=== PATIENT | female | born 1990 | race Caucasian/White ===

== ENCOUNTER 2019-02-17 12:14 | Inpatient (IN) | payer OTHER ==
[~2019-02-17] VITALS: Ht 157.5 cm; Wt 96.6 kg
[2019-02-17] VITALS (11 sets, daily range): BP systolic 121–169; BP diastolic 59–105
[2019-02-17] MEDS ORDERED: ONDANSETRON HCL 4 MG/2 ML VIAL ONE ×2 (12:57→19:45)
[2019-02-17 13:05] LABS: BASOPHILS % (AUTO) 1.1 % (0.0-5.0); EOSINOPHILS % (AUTO) 0.6 % (0.0-8.0); HEMATOCRIT 36.7 % (36-48); LYMPHOCYTES % (AUTO) 13.5 % (21.0-51.0); MEAN CORPUSCULAR HEMOGLOBIN 27.8 pg (27.0-33.0); MEAN CORPUSCULAR HGB CONC 33.8 g/dL (32.0-36.0); MEAN CORPUSCULAR VOLUME 82.2 fL (79-99); NEUTROPHILS % (AUTO) 80.8 % (40.0-77.0); PLATELET COUNT (AUTO) 439 K/uL (130-400); RED BLOOD CELL COUNT(AUTO) 4.47 MIL/uL (4.00-5.50); RED CELL DISTRIBUTION WIDTH 12.6 % (11.0-15.5); WHITE BLOOD COUNT (AUTO) 10.6 K/uL (4.8-10.8)
[2019-02-17] MEDS ORDERED: SODIUM CHLORIDE 0.9% 1000ML 1,000 ML IV ONE ×2 (13:10→14:29)
[2019-02-17 13:31] LABS: ALBUMIN 1.7 g/dL (3.5-5.0); BILIRUBIN,TOTAL 0.5 mg/dL (0.2-1.0); TOTAL PROTEIN, SERUM 6.3 g/dL (6.0-8.3)
[2019-02-17 13:41] LABS: POTASSIUM 2.8 mmol/L (3.5-5.1)
[2019-02-17] MEDS ORDERED: POTASSIUM CHLORIDE 20MEQ/100ML 100 ML IV ONE (14:11)
[2019-02-17] MEDS ORDERED: INSULIN HUMULIN R 100 UNIT/ML 3ML ONE ×2 (14:13→16:02)
[2019-02-17 14:45] LABS: ABG OXYGEN SATURATION 44.8 % (95.0-99.0); BASE EXCESS,VENOUS BLOOD GAS -2.7 (-2.0-3.0); HCO3,VENOUS BLOOD GAS 21.5 (21.0-28.0); PCO2,VENOUS BLOOD GAS 36 (32-45); PH,VENOUS BLOOD GAS 7.397 (7.350-7.450)
[2019-02-17 14:47] LABS: APPEARANCE,URINE Cloudy (CLEAR); BILIRUBIN,URINE Negative (NEGATIVE); COLOR,URINE Yellow (YELLOW); GLUCOSE, URINE (UA) >=1000 mg/dL (NEGATIVE); KETONES,URINE Trace mg/dL (NEGATIVE); LEUKOCYTE ESTERASE ,URINE Negative (NEGATIVE); NITRATE,URINE Negative (NEGATIVE); OCCULT BLOOD,URINE Small (NEGATIVE); PH,URINE 7.5 (5.0-8.0); PROTEIN,URINE >=1000 mg/dL (NEGATIVE); UROBILINOGEN,URINE 0.2 mg/dL (0.2-1.0)
[2019-02-17 14:56] LABS: AMPHET/METH SCREEN,URINE NEGATIVE (NEGATIVE); BARBITURATE SCREEN, URINE NEGATIVE (NEGATIVE); BENZODIAZEPINES SCREEN,URINE NEGATIVE (NEGATIVE); CANNABINOID SCREEN,URINE NEGATIVE (NEGATIVE); COCAINE SCREEN,URINE NEGATIVE (NEGATIVE); OPIATE SCREEN,URINE NEGATIVE (NEGATIVE); PHENCYCLIDINE SCREEN,URINE NEGATIVE (NEGATIVE)
[2019-02-17] MEDS ORDERED: ACETAMINOPHEN EXTRA STRENGTH 500 MG TABLET ONE (14:56)
[2019-02-17 15:13] LABS: BACTERIA,URINE Few /HPF (None Seen); TRICHOMONAS,URINE Few /LPF (None Seen); YEAST,URINE BUDDING Few /HPF (None Seen)
[2019-02-17 15:14] LABS: HYALINE CASTS, URINE 0-1 /LPF (0-1 /LPF); SQUAMOUS EPITHELIAL CELL,UR Moderate /HPF (0-2)
[2019-02-17] MEDS ORDERED: SODIUM CHLORIDE 0.9% 100 ML IV ONE (16:00)
[2019-02-17] MEDS ORDERED: DEXTROSE 50%-WATER 50 ML DISP.SYRIN IV PRN ×2 (16:15→19:45)
[2019-02-17] MEDS ORDERED: GLUCAGON 1MG KIT 1 MG ML IM PRN ×2 (16:15→19:45)
[2019-02-17] MEDS ORDERED: INSULIN SQ SCH ×2 (16:15)
[2019-02-17] MEDS ORDERED: INSULIN R PO SS1 SQ SCH (16:30)
[2019-02-17] MEDS ORDERED: LIDOCAINE HCL-MPF 1% 2ML VIAL IV PRN (19:30)
[2019-02-17] MEDS ORDERED: KETOROLAC TROMETHAMINE 30MG/ML IV PRN (19:30)
[2019-02-17] MEDS ORDERED: KETOROLAC TROMETHAMINE 15MG/ML IV PRN (19:30)
[2019-02-17] MEDS ORDERED: ONDANSETRON HCL 4 MG/2 ML VIAL IVP PRN (19:30)
[2019-02-17] MEDS ORDERED: KETOROLAC TROMETHAMINE 15MG/ML ONE (19:46)
[2019-02-17] MEDS: SODIUM CHLORIDE 0.9% 1000ML 1,000 ML IV SCH (20:30)
[2019-02-17] MEDS: ENOXAPARIN SODIUM 30 MG/0.3 ML SQ SCH (20:31)
--- NOTE | 2019-02-17 20:40 | NUR ---
MD ROUNDS DR BLACK AT THE BEDSIDE AND ASSESSMENT COMPLETED. SPOKE TO PATIENT REGARDING DEPRESSIVE BEHAVIORS. PSYCHIATRY CONSULT ORDERED FOR TUESDAY
[2019-02-17] MEDS: POTASSIUM CHLORIDE 20MEQ/100ML 100 ML IV PRN ×2 (20:50→23:19)
--- NOTE | 2019-02-17 21:04 | NUR ---
NAUSEA PATIENT REPORTS NO NAUSEA BUT IS FORCING SELF TO THOW UP USING FINGERS. HAS BEEN MEDICATED WITH ANTIEMETIC
[2019-02-18] VITALS (12 sets, daily range): BP systolic 126–185; BP diastolic 72–109
[2019-02-18] MEDS: INSULIN HUMULIN R 100 UNIT/ML 3ML SQ SCH ×5 (00:20→21:16)
[2019-02-18 03:53] LABS: CREATININE 1.8 mg/dL (0.5-1.5); POTASSIUM 3.2 mmol/L (3.5-5.1)
[2019-02-18] MEDS: POTASSIUM CHLORIDE 20MEQ/100ML 100 ML IV PRN ×2 (04:29→06:30)
[2019-02-18] MEDS: SODIUM CHLORIDE 0.9% 1000ML 1,000 ML IV SCH ×5 (04:31→21:21)
[2019-02-18] MEDS ORDERED: INSU100V3 SQ (06:46)
[2019-02-18] MEDS: ENOXAPARIN SODIUM 30 MG/0.3 ML SQ SCH (08:01)
[2019-02-18] MEDS: FAMOTIDINE/PF 20 MG/2 ML VIAL IV SCH (08:01)
--- NOTE | 2019-02-18 10:00 | NUR ---
Dr. Dickey office was called due to new consult but there was not answer. Message left.
--- NOTE | 2019-02-18 10:51 | NUR ---
Patient continues to complain about nausea and vomiting. Witness patient placing fingers in her mouth to force vomit. Antiemetic was giving in the morning around 0800 with no relief of her symptoms. PCP made aware of patients behavior.
--- NOTE | 2019-02-18 10:55 | NUR ---
Right forearm IV infiltrated. IV was removed immediately, arm elevated, and warm pack was placed on the site.
--- NOTE | 2019-02-18 11:05 | NUR ---
Spoke with Dr. Reagan about patient refusing to be placed on the bedside monitor for continuous monitoring. He ordered that it was okay to monitor the patients vitals signs q4hrs.
--- NOTE | 2019-02-18 14:10 | NUR ---
Dr. Reagan notified about the patient refusing continuous IV NS to be given and does not want potassium IV. PO recommended but patient continues to induce herself to vomit.
--- NOTE | 2019-02-18 15:35 | NUR ---
cm note met with patient and states resides at home with sister. recently moved down from [place]. states she plans to stay here in the area. states she uses insulin at home. has been diabetic all her life. pt states she does not have a local md, provided pt with list of low income clinics in the area, and instructed on importance of md followup and medication compliance. pt states she will followup at clinics. has spoke to christa for possible assistance. dc plan is back home with sister at tx. Addendum: 02/18/19 at 1539 by DARIUSZ ALONZO CM Amended: Links added.
--- NOTE | 2019-02-18 16:00 | NUR ---
Patient transferred to 4th floor room 410 at 1600. All belongings went with the patient.
[2019-02-19] VITALS (7 sets, daily range): BP systolic 128–153; BP diastolic 75–98
[2019-02-19] MEDS: SODIUM CHLORIDE 0.9% 1000ML 1,000 ML IV SCH ×3 (05:11→18:06)
[2019-02-19] MEDS: INSULIN HUMULIN R 100 UNIT/ML 3ML SQ SCH ×4 (05:11→20:46)
[2019-02-19] MEDS: FAMOTIDINE/PF 20 MG/2 ML VIAL IV SCH ×2 (09:23→20:41)
[2019-02-19] MEDS: ENOXAPARIN SODIUM 30 MG/0.3 ML SQ SCH (09:24)
[2019-02-19] MEDS: INSULIN NPH 100 UNIT/ML 3ML SQ SCH ×2 (16:00→20:45)
[2019-02-19] MEDS ORDERED: METOCLOPRAMIDE 10 MG/2 ML VIAL IVP SCH (16:30)
[2019-02-19] MEDS ORDERED: INSULIN GLARGINE 100 UNITS/ML 10 ML VIAL SQ ONE (17:30)
--- NOTE | 2019-02-19 19:00 | NUR ---
NOTE DR LYNN ROUNDED AND HE DID NOT WANT TO SEE THE CONSULT BECAUSE HE DID NOT THINK THERE WAS A REASON FOR GI TO BE CONSULTED FOR N/V. HE RECOMMENDED PATIENT HAD GASTRIC EMPTYING STUDY DONE AND IF THERE IS ANY ISSUES LATER HE CAN BE CONSULTED BUT NOT FOR SUSPECTED GASTROPARESIS. PATIENT HAS BEEN OKAY SINCE SHE WAS GIVEN REGLAN IV AND SHE IS BACK ON IVF. HAVE ENTERED STUDY ORDER FOR TOMORROW. PATIENT WILL BE NPO AND HOLD REGLAN PER LEAH'S ORDERS.
[2019-02-20 03:40] VITALS: BP 152/96
[2019-02-20 05:16] LABS: BASOPHILS % (AUTO) 0.4 % (0.0-5.0); EOSINOPHILS % (AUTO) 2.7 % (0.0-8.0); HEMATOCRIT 30.6 % (36-48); LYMPHOCYTES % (AUTO) 30.8 % (21.0-51.0); MEAN CORPUSCULAR HEMOGLOBIN 28.5 pg (27.0-33.0); MEAN CORPUSCULAR HGB CONC 34.6 g/dL (32.0-36.0); MEAN CORPUSCULAR VOLUME 82.4 fL (79-99); MONOCYTES % (AUTO) 8.6 % (3.0-13.0); NEUTROPHILS % (AUTO) 57.5 % (40.0-77.0); PLATELET COUNT (AUTO) 342 K/uL (130-400); RED BLOOD CELL COUNT(AUTO) 3.72 MIL/uL (4.00-5.50); RED CELL DISTRIBUTION WIDTH 12.6 % (11.0-15.5); WHITE BLOOD COUNT (AUTO) 8.1 K/uL (4.8-10.8)
[2019-02-20 05:20] LABS: HEMOGLOBIN A1C 14.4 % (4.0-6.0)
[2019-02-20 05:31] LABS: CREATININE 1.5 mg/dL (0.5-1.5); POTASSIUM 3.1 mmol/L (3.5-5.1)
[2019-02-20] MEDS: INSULIN HUMULIN R 100 UNIT/ML 3ML SQ SCH ×4 (06:09→21:02)
[2019-02-20 07:59] VITALS: BP 149/86
[2019-02-20] MEDS: INSULIN NPH 100 UNIT/ML 3ML SQ SCH ×2 (08:00→18:33)
[2019-02-20] MEDS: FAMOTIDINE/PF 20 MG/2 ML VIAL IV SCH (10:27)
[2019-02-20] MEDS: ENOXAPARIN SODIUM 30 MG/0.3 ML SQ SCH (10:27)
[2019-02-20 10:45] VITALS: BP 161/113
[2019-02-20] MEDS: SODIUM CHLORIDE 0.9% 1000ML 1,000 ML IV SCH ×2 (11:41→21:41)
[2019-02-20 17:36] VITALS: BP 154/92
[2019-02-20 20:00] VITALS: BP 159/95
[2019-02-20 23:36] VITALS: BP 156/99
[2019-02-21] VITALS (7 sets, daily range): BP systolic 126–147; BP diastolic 75–93
[2019-02-21] MEDS ORDERED: HYDRALAZINE HCL 20 MG/ML VIAL IV PRN
[2019-02-21] MEDS ORDERED: HYDRALAZINE HCL 20 MG/ML VIAL ONE (00:07)
[2019-02-21 04:28] LABS: BASOPHILS % (AUTO) 0.8 % (0.0-5.0); EOSINOPHILS % (AUTO) 1.5 % (0.0-8.0); MEAN CORPUSCULAR HGB CONC 35.4 g/dL (32.0-36.0); MEAN CORPUSCULAR VOLUME 82.1 fL (79-99); MONOCYTES % (AUTO) 8.4 % (3.0-13.0); NEUTROPHILS % (AUTO) 63.3 % (40.0-77.0); PLATELET COUNT (AUTO) 376 K/uL (130-400); RED BLOOD CELL COUNT(AUTO) 3.89 MIL/uL (4.00-5.50); RED CELL DISTRIBUTION WIDTH 12.8 % (11.0-15.5); WHITE BLOOD COUNT (AUTO) 9.6 K/uL (4.8-10.8)
[2019-02-21 04:41] LABS: CREATININE 1.6 mg/dL (0.5-1.5); MAGNESIUM 1.6 mg/dL (1.80-2.40)
[2019-02-21] MEDS: INSULIN HUMULIN R 100 UNIT/ML 3ML SQ SCH ×4 (05:25→21:01)
[2019-02-21] MEDS ORDERED: POTASSIUM CHLORIDE 20 MEQ ERTAB PO PRN (05:30)
[2019-02-21] MEDS ORDERED: POTASSIUM CHLORIDE 20 MEQ ERTAB PO ONE (05:33)
[2019-02-21] MEDS: SODIUM CHLORIDE 0.9% 1000ML 1,000 ML IV SCH (07:41)
[2019-02-21] MEDS: FAMOTIDINE/PF 20 MG/2 ML VIAL IV SCH (08:41)
[2019-02-21] MEDS: POTASSIUM CHLORIDE 20MEQ/100ML 100 ML IV PRN (08:42)
[2019-02-21] MEDS: ENOXAPARIN SODIUM 30 MG/0.3 ML SQ SCH (08:43)
[2019-02-21] MEDS: INSULIN NPH 100 UNIT/ML 3ML SQ SCH ×2 (08:51→16:31)
--- NOTE | 2019-02-21 09:00 | NUR ---
DR CHEN PAGED REGARDING CONSULT PENDING CB
--- NOTE | 2019-02-21 10:23 | NUR ---
RCD CALL FROM S OFFICE SPOKE TO MISTI ABOUT CONSULT, STATED HE WILL BE IN TO SEE PT TODAY
--- NOTE | 2019-02-21 14:16 | NUR ---
RD Notification Pt admitted for Uncontrolled Hyperglycemia, Mild DKA. Pt tolerating 75gm CCD, no report of GI distress and improved good appetite (75-100%) as per Pt. Pending Diabetic Diet education upon follow up. Pt LBM 02/20. Pt monitored labs: K 3.0, Cr 1.6, GFR 4.0, Ca 7.9, Mg 1.60, Alb 1.7. RD to continue to monitor. Please notify RD as additional nutrition concerns arise. thank you. Addendum: 02/21/19 at [address] RD Amended: Links added.
[2019-02-21] MEDS ORDERED: MAGNESIUM SULFATE 1 GM in SODIUM CHLORIDE 0.9% 50 ML IV PRN (15:30)
[2019-02-21] MEDS: POTASSIUM CHLORIDE 10% ELIXIR 20 MEQ/15 ML UDCUP PO PRN ×2 (16:24→18:20)
[2019-02-21] MEDS: METOCLOPRAMIDE 5 MG TABLET PO SCH (16:24)
[2019-02-21] MEDS ORDERED: TRAZODONE HCL 100 MG TABLET PO SCH (21:00)
[2019-02-22 04:00] VITALS: BP 116/80
[2019-02-22 04:26] LABS: HEMATOCRIT 29.8 % (36-48); MEAN CORPUSCULAR HEMOGLOBIN 28.4 pg (27.0-33.0); MEAN CORPUSCULAR HGB CONC 33.9 g/dL (32.0-36.0); PLATELET COUNT (AUTO) 339 K/uL (130-400); RED BLOOD CELL COUNT(AUTO) 3.54 MIL/uL (4.00-5.50); RED CELL DISTRIBUTION WIDTH 13.1 % (11.0-15.5); WHITE BLOOD COUNT (AUTO) 6.9 K/uL (4.8-10.8)
[2019-02-22 04:27] LABS: BASOPHILS % (AUTO) 0.5 % (0.0-5.0); EOSINOPHILS % (AUTO) 3.3 % (0.0-8.0); LYMPHOCYTES % (AUTO) 41.8 % (21.0-51.0); MONOCYTES % (AUTO) 8.7 % (3.0-13.0); NEUTROPHILS % (AUTO) 45.7 % (40.0-77.0)
[2019-02-22 04:38] LABS: CREATININE 1.5 mg/dL (0.5-1.5); MAGNESIUM 1.8 mg/dL (1.80-2.40); POTASSIUM 4.4 mmol/L (3.5-5.1)
[2019-02-22] MEDS: METOCLOPRAMIDE 5 MG TABLET PO SCH ×2 (06:44→17:00)
[2019-02-22] MEDS: INSULIN HUMULIN R 100 UNIT/ML 3ML SQ SCH ×3 (06:45→16:59)
[2019-02-22] MEDS: INSULIN NPH 100 UNIT/ML 3ML SQ SCH ×2 (06:45→16:58)
[2019-02-22 07:54] VITALS: BP 151/98
[2019-02-22] MEDS ORDERED: FLUOXETINE HCL 20 MG CAPSULE PO SCH (09:00)
[2019-02-22] MEDS: ENOXAPARIN SODIUM 30 MG/0.3 ML SQ SCH (09:03)
[2019-02-22] MEDS: FAMOTIDINE/PF 20 MG/2 ML VIAL IV SCH (09:03)
[2019-02-22 11:26] VITALS: BP 156/96
[2019-02-22] MEDS ORDERED: FLUO-126 PO (13:32)
[2019-02-22] MEDS ORDERED: HUMLIS7525 SQ (13:32)
[2019-02-22] MEDS ORDERED: TRAZ-221 PO (13:32)
--- NOTE | 2019-02-22 14:31 | NUR ---
RD FOLLOW UP DIET: REGULAR- 75GMCCD. PO INTAKE 0% (LUNCH) AND HAS STEADY APPETITE. PT NOT HUNGRY AT LUNCH; DURING TIME OF VISIT. PT STATED SHE ATE A GOOD BREAKFAST AND WAS NOT VERY HUNGRY AT THE MOMENT. PT UNABLE TO IDENTIFY FOODS TO AVOID/RECOMMENDED REGARDING A DIABETIC DIET. RD PROVIDED DIABETES DIET AND NUTRITION EDUCATION. PT VERBALIZED UNDERSTANDING, MATERIALS PROVIDED. RD RECOMMENDS CONTINUE CURRENT DIET RD PROVIDED DIABETES DIET AND NUTRITION EDUCATION RD WILL FOLLOW UP NEEDED, THANK YOU. Addendum: 02/22/19 at [address] Amended: Links added.
--- NOTE | 2019-02-22 14:36 | NUR ---
NUTRITION EDUCATION PT UNABLE TO IDENTIFY FOODS TO AVOID/RECOMMENDED REGARDING A DIABETIC DIET. RD PROVIDED DIABETES DIET AND NUTRITION EDUCATION. PT VERBALIZED UNDERSTANDING, MATERIALS PROVIDED. Addendum: 02/22/19 at [address] Amended: Links added.
[2019-02-22 16:00] VITALS: BP 157/94
--- NOTE | 2019-02-22 18:11 | NUR ---
PT D/C HOME USING TEACH BACK TECHNIQUE RE; NEW MEDS, HOME MEDS, S/S TO WATCH FOR AND WHEN TO CALL MD OR 911. FOLLOW UP WITH YOUR PRIMARY DOCTOR IN 2-4 DAYS. FOR BLOOD GLUCOSE MANAGEMENT AND CONTROL. CALL 911 IF SHORTNESS OF BREATH AND CHEST PAIN OCCURS AND DOES NOT RESOLVE WITH REST. CHECK BLOOD SUGARS DAILY BEFORE MEALS AND AT BEDTIME. IV OUT, INTACT NO BLEEDING, AAOX3, DENIES ANY DISTRESS, NO SOB, DENIES ANY QUESTIONS. RX AND EDUCATION GIVEN RE; HYPO AND HYPERGLYCEMIA. FRIEND AT BEDSIDE WHO SEEMS CONCERN OF PT CARE ALSO ATTENTIVE OF EDUCATION.
== END 2019-02-22 18:25 | disposition home or self-care (01) | DRG 638 ==
LOC: EDH 12:14 → OBSVTOIN 12:15 → EDHIP 12:15 → 2CH 18:57 → 4BH 02-18 16:20
PROVIDERS: ADMIT Family Medicine; ATTEND Family Medicine
DX: E11.10 Type 2 diabetes mellitus with ketoacidosis without coma (principal); N17.9 Acute kidney failure, unspecified; E87.0 Hyperosmolality and hypernatremia; K31.84 Gastroparesis; E11.43 Type 2 diabetes mellitus with diabetic autonomic (poly)neuropathy; R63.0 Anorexia; F32.9 Major depressive disorder, single episode, unspecified; R13.10 Dysphagia, unspecified; Z68.39 Body mass index [BMI] 39.0-39.9, adult; E66.01 Morbid (severe) obesity due to excess calories; I10 Essential (primary) hypertension; Z87.81 Personal history of (healed) traumatic fracture; Z91.19 Patient's noncompliance with other medical treatment and regimen
CPT/HCPCS: 36415; 36600; 74220; 78264; 80048; 80053; 80305; 81001; 81025; 82010; 82150; 82803; 82948; 83036; 83690; 83735; 84132; 85025; 87804; A9541; G0378; J0360; J1650; J1815; J1885; J2405; J2765; J3480; J3490; J7030

== ENCOUNTER 2020-10-30 10:27 | Inpatient (IN) | payer OTHER ==
[2020-10-30] VITALS (19 sets, daily range): BP systolic 129–152; BP diastolic 58–109
[~2020-10-30] VITALS: Ht 160 cm; Wt 70.4 kg
[~2020-10-30 10:27] MED LIST: FLUO20CA35 PO; HUMLIS7525 SQ; TRAZ-258 PO
[2020-10-30 11:11] LABS: BASOPHILS % (AUTO) 0.4 % (0.0-5.0); EOSINOPHILS % (AUTO) 5.5 % (0.0-8.0); LYMPHOCYTES % (AUTO) 15.8 % (21.0-51.0); MEAN CORPUSCULAR HEMOGLOBIN 28.3 pg (27.0-33.0); MEAN CORPUSCULAR HGB CONC 30.8 g/dL (32.0-36.0); MEAN CORPUSCULAR VOLUME 91.8 fL (79-99); MONOCYTES % (AUTO) 9.8 % (3.0-13.0); NEUTROPHILS % (AUTO) 68.2 % (40.0-77.0); PLATELET COUNT (AUTO) 205 K/uL (130-400); RED BLOOD CELL COUNT(AUTO) 4.14 MIL/uL (4.00-5.50); RED CELL DISTRIBUTION WIDTH 16.5 % (11.0-15.5)
[2020-10-30 11:19] LABS: INR 1.15 (0.85-1.15); PROTHROMBIN TIME 12.4 SEC (9.6-11.6)
[2020-10-30 11:20] LABS: PARTIAL THROMBOPLASTIN TIME 25.8 SEC (26.3-35.5)
[2020-10-30 11:23] LABS: ALBUMIN 3.1 g/dL (3.5-5.0); BILIRUBIN,TOTAL 0.6 mg/dL (0.2-1.0); CREATININE 7.1 mg/dL (0.5-1.5); TOTAL PROTEIN, SERUM 7.8 g/dL (6.0-8.3)
[2020-10-30] MEDS ORDERED: ACETAMINOPHEN 325 MG TAB PO PRN ×2 (14:30)
[2020-10-30] MEDS ORDERED: VANCOMYCIN PROTOCOL PER PHARMACY IV PRN (14:30)
[2020-10-30] MEDS ORDERED: ONDANSETRON 4MG INJ IV PRN (14:30)
[2020-10-30] MEDS ORDERED: RENAL DOSE IV SCH (14:30)
[2020-10-30] MEDS ORDERED: HYDRALAZINE 20MG/ML VIAL IV PRN (14:30)
[2020-10-30] MEDS: VANCOMYCIN KIT 250 ML IV SCH (14:41)
[2020-10-30 15:03] LABS: CRP QUANTITATIVE 13.7 mg/L (0.00-9.0)
[2020-10-30] MEDS ORDERED: 0.9%NACL 1000ML 1,000 ML IV PRN (17:30)
[2020-10-30] MEDS ORDERED: HEPARIN 5,000 UNIT VIAL SQ PRN (17:30)
[2020-10-30] MEDS: HYDROMORPHONE 0.5 MG SYG (0.5MG/0.5ML) IVP PRN (20:47)
[2020-10-30] MEDS: ZOSYN 3.375GM+NS 50ML 50 ML IV SCH (21:56)
[2020-10-31] MEDS: HYDROMORPHONE 0.5 MG SYG (0.5MG/0.5ML) IVP PRN ×4 (02:51→21:16)
[2020-10-31 03:32] VITALS: BP 117/86
[2020-10-31 04:42] LABS: BASOPHILS % (AUTO) 0.6 % (0.0-5.0); EOSINOPHILS % (AUTO) 5.6 % (0.0-8.0); HEMATOCRIT 39.1 % (36-48); MEAN CORPUSCULAR HEMOGLOBIN 28.4 pg (27.0-33.0); MEAN CORPUSCULAR HGB CONC 30.9 g/dL (32.0-36.0); MEAN CORPUSCULAR VOLUME 91.8 fL (79-99); MONOCYTES % (AUTO) 10.1 % (3.0-13.0); NEUTROPHILS % (AUTO) 62.6 % (40.0-77.0); PLATELET COUNT (AUTO) 197 K/uL (130-400); RED BLOOD CELL COUNT(AUTO) 4.26 MIL/uL (4.00-5.50); RED CELL DISTRIBUTION WIDTH 16.6 % (11.0-15.5); WHITE BLOOD COUNT (AUTO) 6.9 K/uL (4.8-10.8)
[2020-10-31 04:57] LABS: CREATININE 5.6 mg/dL (0.5-1.5); CRP QUANTITATIVE 15.4 mg/L (0.00-9.0); PHOSPHORUS 5.2 mg/dL (2.5-4.9); POTASSIUM 3.9 mmol/L (3.5-5.1)
[2020-10-31 05:01] LABS: HEMOGLOBIN A1C 11.1 % (4.0-6.0)
[2020-10-31 08:16] VITALS: BP 127/90
[2020-10-31] MEDS: ZOSYN 3.375GM+NS 50ML 50 ML IV SCH ×2 (09:04→20:36)
[2020-10-31] MEDS: ENOXAPARIN SODIUM 30 MG/0.3 ML SQ SCH (09:05)
[2020-10-31 11:09] VITALS: BP 129/89
[2020-10-31 17:07] VITALS: BP 130/90
[2020-10-31 20:00] VITALS: BP 130/95
[2020-10-31 23:51] VITALS: BP 128/85
[2020-11-01] VITALS (37 sets, daily range): BP systolic 94–176; BP diastolic 36–96
[2020-11-01] MEDS: HYDROMORPHONE 0.5 MG SYG (0.5MG/0.5ML) IVP PRN ×3 (03:17→18:25)
[2020-11-01 05:00] LABS: BASOPHILS % (AUTO) 0.5 % (0.0-5.0); EOSINOPHILS % (AUTO) 5.6 % (0.0-8.0); HEMATOCRIT 38.4 % (36-48); LYMPHOCYTES % (AUTO) 26.6 % (21.0-51.0); MEAN CORPUSCULAR HEMOGLOBIN 28.2 pg (27.0-33.0); MEAN CORPUSCULAR HGB CONC 31.3 g/dL (32.0-36.0); MEAN CORPUSCULAR VOLUME 90.1 fL (79-99); MONOCYTES % (AUTO) 11.1 % (3.0-13.0); NEUTROPHILS % (AUTO) 55.9 % (40.0-77.0); PLATELET COUNT (AUTO) 204 K/uL (130-400); RED BLOOD CELL COUNT(AUTO) 4.26 MIL/uL (4.00-5.50); RED CELL DISTRIBUTION WIDTH 16.4 % (11.0-15.5); WHITE BLOOD COUNT (AUTO) 5.9 K/uL (4.8-10.8)
[2020-11-01] MEDS: ENOXAPARIN SODIUM 30 MG/0.3 ML SQ SCH (09:00)
[2020-11-01] MEDS: ZOSYN 3.375GM+NS 50ML 50 ML IV SCH ×2 (09:52→21:40)
[2020-11-01 13:40] LABS: CREATININE 4.8 mg/dL (0.5-1.5)
[2020-11-01] MEDS ORDERED: LIDOCAINE PF 100MG/5ML (2%) SYRINGE 5ML ONE (14:00)
[2020-11-01] MEDS ORDERED: SUCCINYLCHOLINE CHLORIDE 20 MG/ML 10 ML VIAL ONE (14:00)
[2020-11-01] MEDS ORDERED: 0.9% NACL 250ML 250 ML ONE (14:00)
[2020-11-01] MEDS ORDERED: NEOSTIGMINE 5MG/5ML SYR IV ONE ×2 (14:01→15:36)
[2020-11-01] MEDS ORDERED: ONDANSETRON 4MG INJ ONE (14:01)
[2020-11-01] MEDS ORDERED: GLYCOPYRROLATE 1 MG/5 ML SYRINGE ONE (14:01)
[2020-11-01] MEDS ORDERED: DEXAMETHASONE SOD PHOSPHATE 10MG/ML 1ML VIAL ONE (14:01)
[2020-11-01] MEDS ORDERED: MIDAZOLAM HCL 1 MG/ML 2ML VIAL ONE (14:01)
[2020-11-01] MEDS ORDERED: PROPOFOL 10 MG/ML 20ML VIAL IV ONE (14:01)
[2020-11-01] MEDS ORDERED: ROCURONIUM 10MG/1ML SYR 10 MG/ML ML ONE (14:01)
[2020-11-01] MEDS ORDERED: FENTANYL CITRATE PF 50 MCG/1 ML 2ML VIAL ONE (14:02)
[2020-11-01] MEDS ORDERED: EPHEDRINE SULFATE 50 MG/ML AMPULE ONE (15:26)
[2020-11-01] MEDS ORDERED: SUGAMMADEX SODIUM 200 MG/2 ML VIAL IV ONE (15:40)
[2020-11-01] MEDS ORDERED: CEFAZOLIN SODIUM 1 GM VIAL ONE (15:43)
[2020-11-01] MEDS: VANCOMYCIN KIT 250 ML IV SCH (16:38)
[2020-11-01] MEDS ORDERED: MEPERIDINE-PF 25 MG/ML SYG ONE (17:05)
[2020-11-02] VITALS (7 sets, daily range): BP systolic 105–142; BP diastolic 63–88
[2020-11-02] MEDS: HYDROMORPHONE 0.5 MG SYG (0.5MG/0.5ML) IVP PRN ×5 (00:25→23:43)
[2020-11-02 04:40] LABS: BASOPHILS % (AUTO) 0.1 % (0.0-5.0); HEMATOCRIT 37.5 % (36-48); LYMPHOCYTES % (AUTO) 10.1 % (21.0-51.0); MEAN CORPUSCULAR HEMOGLOBIN 27.9 pg (27.0-33.0); MEAN CORPUSCULAR HGB CONC 31.5 g/dL (32.0-36.0); MEAN CORPUSCULAR VOLUME 88.7 fL (79-99); MONOCYTES % (AUTO) 3.7 % (3.0-13.0); NEUTROPHILS % (AUTO) 85.8 % (40.0-77.0); PLATELET COUNT (AUTO) 232 K/uL (130-400); RED BLOOD CELL COUNT(AUTO) 4.23 MIL/uL (4.00-5.50); RED CELL DISTRIBUTION WIDTH 16.5 % (11.0-15.5); WHITE BLOOD COUNT (AUTO) 7.2 K/uL (4.8-10.8)
[2020-11-02 05:00] LABS: CREATININE 6.6 mg/dL (0.5-1.5); CRP QUANTITATIVE 21.5 mg/L (0.00-9.0); PHOSPHORUS 7.2 mg/dL (2.5-4.9); POTASSIUM 4.8 mmol/L (3.5-5.1)
[2020-11-02] MEDS: ZOSYN 3.375GM+NS 50ML 50 ML IV SCH ×2 (09:58→20:40)
[2020-11-02] MEDS: ENOXAPARIN SODIUM 30 MG/0.3 ML SQ SCH (09:58)
[2020-11-02] MEDS ORDERED: TRAMADOL HCL 50 MG TABLET PO PRN (11:00)
[2020-11-02] MEDS ORDERED: ACETAMINOPHEN 325 MG TAB PO PRN (11:00)
[2020-11-03 03:41] VITALS: BP_SYST 165; BP_SYST 99; BP_DIAS 66; BP_DIAS 93
[2020-11-03 04:27] LABS: HEMATOCRIT 34.2 % (36-48); MEAN CORPUSCULAR HEMOGLOBIN 28.2 pg (27.0-33.0); MEAN CORPUSCULAR HGB CONC 31.9 g/dL (32.0-36.0); MEAN CORPUSCULAR VOLUME 88.6 fL (79-99); PLATELET COUNT (AUTO) 229 K/uL (130-400); RED BLOOD CELL COUNT(AUTO) 3.86 MIL/uL (4.00-5.50); RED CELL DISTRIBUTION WIDTH 16.9 % (11.0-15.5); WHITE BLOOD COUNT (AUTO) 7.5 K/uL (4.8-10.8)
[2020-11-03] MEDS: HYDROMORPHONE 0.5 MG SYG (0.5MG/0.5ML) IVP PRN ×5 (04:34→23:29)
[2020-11-03 04:36] LABS: HEMOGLOBIN A1C 11.2 % (4.0-6.0)
[2020-11-03 04:39] LABS: ALBUMIN 2.8 g/dL (3.5-5.0); BILIRUBIN,DIRECT 0.3 mg/dL (0.0-0.3); BILIRUBIN,TOTAL 0.5 mg/dL (0.2-1.0); PHOSPHORUS 8.9 mg/dL (2.5-4.9); POTASSIUM 5.2 mmol/L (3.5-5.1); TOTAL PROTEIN, SERUM 7.5 g/dL (6.0-8.3)
[2020-11-03 04:49] LABS: CREATININE 8.4 mg/dL (0.5-1.5)
[2020-11-03 05:22] LABS: EOSINOPHILS % (MANUAL) 3 % (1-6); LYMPHOCYTES % (MANUAL) 27 % (22-44); MONOCYTES % (MANUAL) 9 % (2-9); SEGMENTED NEUTROPHILS % 61 % (40-70)
[2020-11-03 05:23] LABS: MAN.DIFF COMMENT-IMPRESSION MANUAL DIFFERENTIAL; PLATELET MORPHOLOGY COMMENT ADEQUATE
[2020-11-03 07:05] VITALS: BP 113/71
[2020-11-03] MEDS ORDERED: SEVELAMER HCL 800 MG TABLET PO SCH (08:00)
[2020-11-03] MEDS: ZOSYN 3.375GM+NS 50ML 50 ML IV SCH ×2 (09:11→23:01)
[2020-11-03] MEDS: ENOXAPARIN SODIUM 30 MG/0.3 ML SQ SCH (09:12)
[2020-11-03 10:30] VITALS: BP 114/75
[2020-11-03] MEDS: INSULIN HUMULIN R 100 UNIT/ML 3ML SQ SCH ×5 (11:30→21:00)
[2020-11-03] MEDS: SEVELAMER HCL 800 MG TABLET PO SCH ×2 (12:33→17:58)
[2020-11-03 15:05] VITALS: BP 115/77
[2020-11-03 20:00] VITALS: BP 137/84
[2020-11-03] MEDS ORDERED: 0.9% NACL 250ML 250 ML ONE (22:11)
[2020-11-03] MEDS: VANCOMYCIN KIT 250 ML IV SCH (22:25)
[2020-11-03] MEDS: INSULIN GLARGINE 100 UNITS/ML 10 ML VIAL SQ SCH (22:37)
[2020-11-04] VITALS (23 sets, daily range): BP systolic 133–162; BP diastolic 85–99
[2020-11-04] MEDS: HYDROMORPHONE 0.5 MG SYG (0.5MG/0.5ML) IVP PRN ×3 (03:03→15:05)
[2020-11-04] MEDS: SEVELAMER HCL 800 MG TABLET PO SCH ×3 (07:26→16:56)
[2020-11-04] MEDS: INSULIN HUMULIN R 100 UNIT/ML 3ML SQ SCH ×7 (07:30→20:08)
[2020-11-04 08:10] LABS: HEMATOCRIT 37.9 % (36-48); MEAN CORPUSCULAR HEMOGLOBIN 28.4 pg (27.0-33.0); MEAN CORPUSCULAR HGB CONC 31.1 g/dL (32.0-36.0); MEAN CORPUSCULAR VOLUME 91.3 fL (79-99); PLATELET COUNT (AUTO) 238 K/uL (130-400); RED BLOOD CELL COUNT(AUTO) 4.15 MIL/uL (4.00-5.50); RED CELL DISTRIBUTION WIDTH 17.2 % (11.0-15.5); WHITE BLOOD COUNT (AUTO) 8.7 K/uL (4.8-10.8)
[2020-11-04 08:28] LABS: CREATININE 10.6 mg/dL (0.5-1.5)
[2020-11-04 08:29] LABS: POTASSIUM 6.3 mmol/L (3.5-5.1)
[2020-11-04] MEDS: ZOSYN 3.375GM+NS 50ML 50 ML IV SCH ×2 (09:00→20:01)
[2020-11-04] MEDS: ENOXAPARIN SODIUM 30 MG/0.3 ML SQ SCH (09:00)
[2020-11-04 09:02] LABS: BASOPHILS % (MANUAL) 1 % (0-2); EOSINOPHILS % (MANUAL) 3 % (1-6); LYMPHOCYTES % (MANUAL) 37 % (22-44); MAN.DIFF COMMENT-IMPRESSION MANUAL DIFFERENTIAL; MONOCYTES % (MANUAL) 9 % (2-9); PLATELET MORPHOLOGY COMMENT ADEQUATE; SEGMENTED NEUTROPHILS % 50 % (40-70)
[2020-11-04] MEDS: VANCOMYCIN KIT 250 ML IV SCH (11:48)
[2020-11-04] MEDS ORDERED: KAYEXALATE 15GM/60ML PO ONE (16:00)
[2020-11-04 16:53] LABS: CREATININE 6.4 mg/dL (0.5-1.5); POTASSIUM 4.4 mmol/L (3.5-5.1)
[2020-11-04] MEDS ORDERED: TRAMADOL HCL 50 MG TABLET PO PRN (19:30)
[2020-11-04] MEDS: ACETAMINOPHEN WITH CODEINE 1 TAB TAB PO PRN (20:01)
[2020-11-04] MEDS: INSULIN GLARGINE 100 UNITS/ML 10 ML VIAL SQ SCH (21:00)
[2020-11-05] VITALS: BP 131/85
[2020-11-05 04:00] VITALS: BP 127/86
[2020-11-05 04:58] LABS: HEMATOCRIT 35.2 % (36-48); MEAN CORPUSCULAR HEMOGLOBIN 27.9 pg (27.0-33.0); MEAN CORPUSCULAR HGB CONC 31.3 g/dL (32.0-36.0); MEAN CORPUSCULAR VOLUME 89.3 fL (79-99); RED BLOOD CELL COUNT(AUTO) 3.94 MIL/uL (4.00-5.50); RED CELL DISTRIBUTION WIDTH 16.7 % (11.0-15.5); WHITE BLOOD COUNT (AUTO) 6.9 K/uL (4.8-10.8)
[2020-11-05 05:10] LABS: CREATININE 7.7 mg/dL (0.5-1.5); CRP QUANTITATIVE 9.8 mg/L (0.00-9.0); POTASSIUM 4.3 mmol/L (3.5-5.1)
[2020-11-05] MEDS: INSULIN HUMULIN R 100 UNIT/ML 3ML SQ SCH ×4 (05:25→11:30)
[2020-11-05] MEDS: ACETAMINOPHEN WITH CODEINE 1 TAB TAB PO PRN (06:11)
[2020-11-05] MEDS: SEVELAMER HCL 800 MG TABLET PO SCH ×2 (08:50→11:53)
[2020-11-05] MEDS: ZOSYN 3.375GM+NS 50ML 50 ML IV SCH (08:50)
[2020-11-05] MEDS: ENOXAPARIN SODIUM 30 MG/0.3 ML SQ SCH (08:50)
[2020-11-05 09:24] VITALS: BP 133/96
[2020-11-05] MEDS ORDERED: HYDROCODONE/ACETAMINOPHEN 5/325 MG TAB PO PRN (10:30)
[2020-11-05] MEDS ORDERED: ACETAMINOPHEN WITH CODEINE 1 TAB TAB PO PRN (10:30)
[2020-11-05 11:00] VITALS: BP 134/93
[2020-11-05 13:13] LABS: HEPATITIS Bs ANTIGEN SCREEN P Negative (Negative)
[2020-11-05] MEDS ORDERED: LEVO250T59 PO (16:13)
[2020-11-05] MEDS ORDERED: SEVE800 PO (16:13)
[2020-11-05] MEDS ORDERED: HYDR-4060 PO (16:13)
== END 2020-11-05 17:00 | disposition home or self-care (01) | DRG 570 ==
LOC: EDH 10:27 → EDHIP 14:03 → 3CH 21:54
PROVIDERS: ADMIT Internal Medicine; ATTEND Internal Medicine
PROC: 5A1D70Z Performance of Urinary Filtration, Intermittent, Less than 6 Hours Per Day (ICD-10-PCS; 2020-10-30)
PROC: 5A1D70Z Performance of Urinary Filtration, Intermittent, Less than 6 Hours Per Day (ICD-10-PCS; 2020-11-01)
PROC: 0JBM0ZZ Excision of Left Upper Leg Subcutaneous Tissue and Fascia, Open Approach (ICD-10-PCS; principal; 2020-11-01 15:26)
PROC: 5A1D70Z Performance of Urinary Filtration, Intermittent, Less than 6 Hours Per Day (ICD-10-PCS; 2020-11-04)
DX: L03.116 Cellulitis of left lower limb (principal); N18.6 End stage renal disease; I12.0 Hypertensive chronic kidney disease with stage 5 chronic kidney disease or end stage renal disease; E11.52 Type 2 diabetes mellitus with diabetic peripheral angiopathy with gangrene; L02.416 Cutaneous abscess of left lower limb; E11.22 Type 2 diabetes mellitus with diabetic chronic kidney disease; E11.65 Type 2 diabetes mellitus with hyperglycemia; E78.5 Hyperlipidemia, unspecified; Z99.2 Dependence on renal dialysis; E87.5 Hyperkalemia; E66.9 Obesity, unspecified; Z20.822 Contact with and (suspected) exposure to COVID-19; D64.9 Anemia, unspecified; E11.649 Type 2 diabetes mellitus with hypoglycemia without coma; F32.9 Major depressive disorder, single episode, unspecified; Z82.49 Family history of ischemic heart disease and other diseases of the circulatory system; Z83.3 Family history of diabetes mellitus; Z87.81 Personal history of (healed) traumatic fracture; Z91.19 Patient's noncompliance with other medical treatment and regimen; Z68.27 Body mass index [BMI] 27.0-27.9, adult
CPT/HCPCS: 36415; 76882; 80048; 80053; 80061; 80076; 80202; 82948; 83036; 83605; 84100; 84145; 84703; 85025; 85027; 85610; 85651; 85730; 86140; 86704; 86706; 87040; 87070; 87076; 87077; 87186; 87340; 87635; 90935; 93005; G0378; J0330; J0360; J0690; J1100; J1170; J1644; J1650; J1815; J2001; J2175; J2250; J2405; J2543; J2704; J2710; J3010; J3370; J3490; J7030; J7050

== ENCOUNTER → 2020-11-06 | Outpatient (CLI) | payer MEDICAID, OTHER ==
[~2020-11-06] MED LIST changes: -FLUO20CA35 PO; -HUMLIS7525 SQ; +HYDR-4060 PO; +LEVO250T59 PO; +LIDOCAINE HCL 4% LTA SOL 4 ML VIAL TP ONE; +SEVE800 PO; -TRAZ-258 PO
== END | disposition home or self-care (01) ==
LOC: WHH 13:56
PROVIDERS: ATTEND Family Medicine
DX: T81.31XA Disruption of external operation (surgical) wound, not elsewhere classified, initial encounter (principal); L02.416 Cutaneous abscess of left lower limb; E11.628 Type 2 diabetes mellitus with other skin complications; E11.22 Type 2 diabetes mellitus with diabetic chronic kidney disease; I12.0 Hypertensive chronic kidney disease with stage 5 chronic kidney disease or end stage renal disease; N18.6 End stage renal disease; E11.52 Type 2 diabetes mellitus with diabetic peripheral angiopathy with gangrene; I96 Gangrene, not elsewhere classified; E78.5 Hyperlipidemia, unspecified; E66.9 Obesity, unspecified; E78.00 Pure hypercholesterolemia, unspecified; F32.9 Major depressive disorder, single episode, unspecified; Z68.27 Body mass index [BMI] 27.0-27.9, adult; Z79.4 Long term (current) use of insulin; Z79.899 Other long term (current) drug therapy; Z99.2 Dependence on renal dialysis; Y83.8 Other surgical procedures as the cause of abnormal reaction of the patient, or of later complication, without mention of misadventure at the time of the procedure; Y92.238 Other place in hospital as the place of occurrence of the external cause
CPT/HCPCS: 97605; 99215

== ENCOUNTER 2020-11-07 18:10 | Emergency (ER) | payer OTHER ==
[~2020-11-07] VITALS: Ht 160 cm; Wt 70.3 kg
[~2020-11-07 18:10] MED LIST changes: -LIDOCAINE HCL 4% LTA SOL 4 ML VIAL TP ONE
== END 2020-11-07 19:30 | disposition home or self-care (01) ==
LOC: EDH 18:10
DX: L76.82 Other postprocedural complications of skin and subcutaneous tissue (principal); E11.9 Type 2 diabetes mellitus without complications; E78.00 Pure hypercholesterolemia, unspecified; I10 Essential (primary) hypertension; Z79.4 Long term (current) use of insulin; Z79.899 Other long term (current) drug therapy
CPT/HCPCS: 99282

== ENCOUNTER → 2020-11-10 | Outpatient (CLI) | payer MEDICAID, OTHER | END | disposition home or self-care (01) | LOC: WHH 14:07 | PROVIDERS: ATTEND Family Medicine | DX: T81.31XD Disruption of external operation (surgical) wound, not elsewhere classified, subsequent encounter (principal); L02.416 Cutaneous abscess of left lower limb; E11.628 Type 2 diabetes mellitus with other skin complications; E11.22 Type 2 diabetes mellitus with diabetic chronic kidney disease; I12.0 Hypertensive chronic kidney disease with stage 5 chronic kidney disease or end stage renal disease; N18.6 End stage renal disease; E11.52 Type 2 diabetes mellitus with diabetic peripheral angiopathy with gangrene; I96 Gangrene, not elsewhere classified; E78.5 Hyperlipidemia, unspecified; E66.9 Obesity, unspecified; E78.00 Pure hypercholesterolemia, unspecified; F32.9 Major depressive disorder, single episode, unspecified; Z68.27 Body mass index [BMI] 27.0-27.9, adult; Z79.4 Long term (current) use of insulin; Z79.899 Other long term (current) drug therapy; Z99.2 Dependence on renal dialysis; Y83.8 Other surgical procedures as the cause of abnormal reaction of the patient, or of later complication, without mention of misadventure at the time of the procedure | CPT/HCPCS: 97605; 99211 ==

== ENCOUNTER → 2020-11-13 | Outpatient (CLI) | payer MEDICAID, OTHER ==
[~2020-11-13] MED LIST changes: +LIDOCAINE HCL 4% LTA SOL 4 ML VIAL TP ONE
== END | disposition home or self-care (01) ==
LOC: WHH 10:49
PROVIDERS: ATTEND Family Medicine
DX: T81.31XD Disruption of external operation (surgical) wound, not elsewhere classified, subsequent encounter (principal); L02.416 Cutaneous abscess of left lower limb; E11.628 Type 2 diabetes mellitus with other skin complications; E11.22 Type 2 diabetes mellitus with diabetic chronic kidney disease; I12.0 Hypertensive chronic kidney disease with stage 5 chronic kidney disease or end stage renal disease; N18.6 End stage renal disease; E11.52 Type 2 diabetes mellitus with diabetic peripheral angiopathy with gangrene; I96 Gangrene, not elsewhere classified; E78.5 Hyperlipidemia, unspecified; E66.9 Obesity, unspecified; E78.00 Pure hypercholesterolemia, unspecified; F32.9 Major depressive disorder, single episode, unspecified; Z68.27 Body mass index [BMI] 27.0-27.9, adult; Z79.4 Long term (current) use of insulin; Z79.899 Other long term (current) drug therapy; Z99.2 Dependence on renal dialysis; Y83.8 Other surgical procedures as the cause of abnormal reaction of the patient, or of later complication, without mention of misadventure at the time of the procedure
CPT/HCPCS: 11042; 11045; 97605

== ENCOUNTER → 2020-11-17 | Outpatient (CLI) | payer MEDICAID, OTHER ==
[~2020-11-17] MED LIST changes: -LIDOCAINE HCL 4% LTA SOL 4 ML VIAL TP ONE
== END | disposition home or self-care (01) ==
LOC: WHH 11:25
PROVIDERS: ATTEND Family Medicine
DX: T81.31XD Disruption of external operation (surgical) wound, not elsewhere classified, subsequent encounter (principal); L02.416 Cutaneous abscess of left lower limb; E11.628 Type 2 diabetes mellitus with other skin complications; E11.22 Type 2 diabetes mellitus with diabetic chronic kidney disease; I12.0 Hypertensive chronic kidney disease with stage 5 chronic kidney disease or end stage renal disease; N18.6 End stage renal disease; E11.52 Type 2 diabetes mellitus with diabetic peripheral angiopathy with gangrene; I96 Gangrene, not elsewhere classified; E78.5 Hyperlipidemia, unspecified; E66.9 Obesity, unspecified; E78.00 Pure hypercholesterolemia, unspecified; F32.9 Major depressive disorder, single episode, unspecified; Z68.27 Body mass index [BMI] 27.0-27.9, adult; Z79.4 Long term (current) use of insulin; Z79.899 Other long term (current) drug therapy; Z99.2 Dependence on renal dialysis; Y83.8 Other surgical procedures as the cause of abnormal reaction of the patient, or of later complication, without mention of misadventure at the time of the procedure
CPT/HCPCS: 97605; 99211

== ENCOUNTER 2020-11-18 09:33 | Inpatient (IN) | payer MEDICAID, MEDICARE, OTHER ==
[2020-11-18] VITALS (7 sets, daily range): BP systolic 115–164; BP diastolic 74–98
[~2020-11-18] VITALS: Ht 157.5 cm; Wt 70.1 kg
[2020-11-18] MEDS ORDERED: ONDANSETRON 4MG INJ IVP ONE (10:00)
[2020-11-18 10:40] LABS: BASOPHILS % (AUTO) 0.3 % (0.0-5.0); HEMATOCRIT 35.9 % (36-48); LYMPHOCYTES % (AUTO) 16.7 % (21.0-51.0); MEAN CORPUSCULAR HEMOGLOBIN 27.7 pg (27.0-33.0); MEAN CORPUSCULAR HGB CONC 30.4 g/dL (32.0-36.0); MEAN CORPUSCULAR VOLUME 91.3 fL (79-99); NEUTROPHILS % (AUTO) 72.7 % (40.0-77.0); PLATELET COUNT (AUTO) 178 K/uL (130-400); RED BLOOD CELL COUNT(AUTO) 3.93 MIL/uL (4.00-5.50); RED CELL DISTRIBUTION WIDTH 17.6 % (11.0-15.5); WHITE BLOOD COUNT (AUTO) 6.2 K/uL (4.8-10.8)
[2020-11-18 10:51] LABS: INR 1.11 (0.85-1.15)
[2020-11-18 10:52] LABS: PARTIAL THROMBOPLASTIN TIME 52.8 SEC (26.3-35.5)
[2020-11-18 10:59] LABS: ALBUMIN 3.3 g/dL (3.5-5.0); BILIRUBIN,TOTAL 0.5 mg/dL (0.2-1.0); POTASSIUM 3.9 mmol/L (3.5-5.1); TOTAL PROTEIN, SERUM 8.3 g/dL (6.0-8.3)
[2020-11-18 12:09] LABS: ABG BASE EXCESS 4.1 mmol/L (-2.0-3.0); ABG HCO3 27.1 mmol/L (21.0-28.0); ABG OXYGEN SATURATION 89.5 % (95.0-99.0); ABG PCO2 35 mmHg (32-45)
[2020-11-18 13:54] LABS: CRP QUANTITATIVE 9.9 mg/L (0.00-9.0)
[2020-11-18] MEDS ORDERED: ACETAMINOPHEN WITH CODEINE 1 TAB TAB PO ONE (16:00)
[2020-11-19 00:23] VITALS: BP 106/71
[2020-11-19] MEDS ORDERED: ACETAMINOPHEN 325 MG TAB PO ONE (01:30)
[2020-11-19 01:54] VITALS: BP 103/72
[2020-11-19 07:14] LABS: BASOPHILS % (AUTO) 0.5 % (0.0-5.0); EOSINOPHILS % (AUTO) 2.7 % (0.0-8.0); HEMATOCRIT 34.4 % (36-48); LYMPHOCYTES % (AUTO) 26.8 % (21.0-51.0); MEAN CORPUSCULAR HEMOGLOBIN 28.3 pg (27.0-33.0); MEAN CORPUSCULAR HGB CONC 30.5 g/dL (32.0-36.0); MEAN CORPUSCULAR VOLUME 92.7 fL (79-99); MONOCYTES % (AUTO) 7.8 % (3.0-13.0); PLATELET COUNT (AUTO) 156 K/uL (130-400); RED BLOOD CELL COUNT(AUTO) 3.71 MIL/uL (4.00-5.50); RED CELL DISTRIBUTION WIDTH 17.7 % (11.0-15.5); WHITE BLOOD COUNT (AUTO) 4.1 K/uL (4.8-10.8)
[2020-11-19 07:30] LABS: ALBUMIN 2.8 g/dL (3.5-5.0); BILIRUBIN,TOTAL 0.6 mg/dL (0.2-1.0); CREATININE 7.1 mg/dL (0.5-1.5); CRP QUANTITATIVE 18.1 mg/L (0.00-9.0); POTASSIUM 4.2 mmol/L (3.5-5.1); TOTAL PROTEIN, SERUM 7.1 g/dL (6.0-8.3)
[2020-11-19] MEDS: HEPARIN 5,000 UNIT VIAL SQ SCH ×2 (09:48→20:30)
[2020-11-19] MEDS: FAMOTIDINE 20MG TAB PO SCH (09:48)
[2020-11-19 09:49] VITALS: BP 111/77
[2020-11-19] MEDS: SEVELAMER HCL 800 MG TABLET PO SCH ×2 (11:59→17:17)
[2020-11-19 12:53] VITALS: BP 135/74
[2020-11-19 18:14] VITALS: BP 114/77
[2020-11-19] MEDS ORDERED: MORPHINE 2 MG SYG IVP PRN ×2 (19:30→22:30)
[2020-11-19 19:31] VITALS: BP 127/88
[2020-11-20] VITALS (22 sets, daily range): BP systolic 91–159; BP diastolic 55–86
[2020-11-20 04:19] LABS: BASOPHILS % (AUTO) 0.5 % (0.0-5.0); EOSINOPHILS % (AUTO) 0.2 % (0.0-8.0); HEMATOCRIT 35.4 % (36-48); LYMPHOCYTES % (AUTO) 27.3 % (21.0-51.0); MEAN CORPUSCULAR HEMOGLOBIN 27.8 pg (27.0-33.0); MEAN CORPUSCULAR HGB CONC 31.1 g/dL (32.0-36.0); MEAN CORPUSCULAR VOLUME 89.6 fL (79-99); MONOCYTES % (AUTO) 10.8 % (3.0-13.0); NEUTROPHILS % (AUTO) 60.9 % (40.0-77.0); PLATELET COUNT (AUTO) 175 K/uL (130-400); RED BLOOD CELL COUNT(AUTO) 3.95 MIL/uL (4.00-5.50); RED CELL DISTRIBUTION WIDTH 17.6 % (11.0-15.5); WHITE BLOOD COUNT (AUTO) 5.7 K/uL (4.8-10.8)
[2020-11-20 04:39] LABS: ALBUMIN 2.9 g/dL (3.5-5.0); BILIRUBIN,TOTAL 0.6 mg/dL (0.2-1.0); CRP QUANTITATIVE 43.5 mg/L (0.00-9.0); MAGNESIUM 2.2 mg/dL (1.80-2.40); PHOSPHORUS 5.8 mg/dL (2.5-4.9); POTASSIUM 5.5 mmol/L (3.5-5.1); TOTAL PROTEIN, SERUM 7.4 g/dL (6.0-8.3)
[2020-11-20 05:02] LABS: CREATININE 8.8 mg/dL (0.5-1.5)
[2020-11-20] MEDS: SEVELAMER HCL 800 MG TABLET PO SCH ×3 (08:00→18:34)
[2020-11-20] MEDS: FAMOTIDINE 20MG TAB PO SCH (09:35)
[2020-11-20] MEDS: HEPARIN 5,000 UNIT VIAL SQ SCH ×2 (09:36→20:40)
[2020-11-20] MEDS: KETOROLAC 15MG/ML VIAL (15MG/ML) IV PRN ×3 (10:55→20:41)
[2020-11-20] MEDS ORDERED: 0.9%NACL 1000ML 2,000 ML IV ONE (11:27)
[2020-11-20] MEDS ORDERED: VANCOMYCIN PROTOCOL PER PHARMACY IV SCH (14:00)
[2020-11-20] MEDS ORDERED: 0.9% NACL 250ML 250 ML ONE (15:25)
[2020-11-20] MEDS: VANCOMYCIN 1G/250ML KIT 250 ML IV SCH (15:28)
[2020-11-20] MEDS: METRONIDAZOLE 500 MG TABLET PO SCH ×2 (15:29→20:41)
[2020-11-20] MEDS: CEFEPIME HCL 1 GM VIAL IVP SCH (15:29)
[2020-11-21 04:12] VITALS: BP 102/51
[2020-11-21] MEDS: KETOROLAC 15MG/ML VIAL (15MG/ML) IV PRN ×3 (04:15→20:58)
[2020-11-21] MEDS: METRONIDAZOLE 500 MG TABLET PO SCH ×3 (05:01→20:58)
[2020-11-21 07:16] LABS: HEPATITIS Bs ANTIGEN SCREEN P Negative (Negative)
[2020-11-21 08:00] VITALS: BP 94/66
[2020-11-21] MEDS: SEVELAMER HCL 800 MG TABLET PO SCH ×3 (08:00→17:00)
[2020-11-21] MEDS: FAMOTIDINE 20MG TAB PO SCH (10:44)
[2020-11-21] MEDS: HEPARIN 5,000 UNIT VIAL SQ SCH ×2 (10:44→21:07)
[2020-11-21 12:00] VITALS: BP 103/67
[2020-11-21] MEDS: CEFEPIME HCL 1 GM VIAL IVP SCH (13:01)
[2020-11-21 16:00] VITALS: BP 100/65
[2020-11-21 20:35] VITALS: BP 96/62
[2020-11-21 23:38] VITALS: BP 94/66
[2020-11-22] VITALS (20 sets, daily range): BP systolic 90–125; BP diastolic 50–92
[2020-11-22] MEDS: METRONIDAZOLE 500 MG TABLET PO SCH ×3 (05:35→20:33)
[2020-11-22] MEDS: KETOROLAC 15MG/ML VIAL (15MG/ML) IV PRN ×2 (05:36→14:45)
[2020-11-22] MEDS: SEVELAMER HCL 800 MG TABLET PO SCH ×3 (08:00→16:40)
[2020-11-22] MEDS: FAMOTIDINE 20MG TAB PO SCH (10:10)
[2020-11-22] MEDS: HEPARIN 5,000 UNIT VIAL SQ SCH ×2 (10:10→20:33)
[2020-11-22 12:42] LABS: HEMATOCRIT 34.9 % (36-48); MEAN CORPUSCULAR HEMOGLOBIN 28.7 pg (27.0-33.0); MEAN CORPUSCULAR HGB CONC 31.8 g/dL (32.0-36.0); MEAN CORPUSCULAR VOLUME 90.2 fL (79-99); PLATELET COUNT (AUTO) 176 K/uL (130-400); RED BLOOD CELL COUNT(AUTO) 3.87 MIL/uL (4.00-5.50); RED CELL DISTRIBUTION WIDTH 17.5 % (11.0-15.5); WHITE BLOOD COUNT (AUTO) 3.2 K/uL (4.8-10.8)
[2020-11-22 13:25] LABS: MAGNESIUM 2.3 mg/dL (1.80-2.40); PHOSPHORUS 6.2 mg/dL (2.5-4.9); POTASSIUM 4.8 mmol/L (3.5-5.1)
[2020-11-22 13:28] LABS: BAND NEUTROPHILS % (MANUAL) 1 % (0-2); BASOPHILS % (MANUAL) 3 % (0-2); EOSINOPHILS % (MANUAL) 8 % (1-6); LYMPHOCYTES % (MANUAL) 16 % (22-44); MAN.DIFF COMMENT-IMPRESSION MANUAL DIFFERENTIAL; MONOCYTES % (MANUAL) 2 % (2-9); PLATELET MORPHOLOGY COMMENT ADEQUATE; SEGMENTED NEUTROPHILS % 70 % (40-70)
[2020-11-22 13:58] LABS: CREATININE 9.9 mg/dL (0.5-1.5)
[2020-11-22] MEDS: CEFEPIME HCL 1 GM VIAL IVP SCH (14:44)
[2020-11-22] MEDS: MIDODRINE HCL 5 MG TABLET PO SCH ×2 (14:48→20:33)
[2020-11-22] MEDS: HEPARIN 5,000 UNIT VIAL IJ PRN (19:24)
[2020-11-23] VITALS (7 sets, daily range): BP systolic 104–151; BP diastolic 73–98
[2020-11-23] MEDS: METRONIDAZOLE 500 MG TABLET PO SCH ×4 (05:31→21:17)
[2020-11-23] MEDS: MIDODRINE HCL 5 MG TABLET PO SCH ×4 (11:26→21:18)
[2020-11-23] MEDS: HEPARIN 5,000 UNIT VIAL SQ SCH ×2 (11:28→21:03)
[2020-11-23] MEDS: FAMOTIDINE 20MG TAB PO SCH (11:28)
[2020-11-23] MEDS: SEVELAMER HCL 800 MG TABLET PO SCH ×3 (11:28→17:00)
[2020-11-23] MEDS: CEFEPIME HCL 1 GM VIAL IVP SCH (14:19)
[2020-11-23] MEDS: VANCOMYCIN 1G/250ML KIT 250 ML IV SCH (15:00)
[2020-11-23] MEDS ORDERED: DEXTROSE 50%-WATER 50 ML DISP.SYRIN IV ONE (15:53)
[2020-11-23] MEDS: DEXTROSE 5 %-0.45 % NACL 1,000 ML IV SCH (22:29)
[2020-11-24] MEDS ORDERED: ZIPRASIDONE MESYLATE 20 MG/VIAL IM ONE (01:25)
[2020-11-24] MEDS ORDERED: ZIPRASIDONE MESYLATE 20 MG/VIAL IM SCH ×2 (01:30→08:30)
[2020-11-24] MEDS: LORAZEPAM 2 MG/ML 1 ML VIAL IVP PRN ×2 (03:53→10:58)
[2020-11-24 04:10] VITALS: BP 127/84
[2020-11-24 04:23] LABS: BASOPHILS % (AUTO) 0.8 % (0.0-5.0); EOSINOPHILS % (AUTO) 3.6 % (0.0-8.0); HEMATOCRIT 39.6 % (36-48); LYMPHOCYTES % (AUTO) 16.8 % (21.0-51.0); MEAN CORPUSCULAR HEMOGLOBIN 27.8 pg (27.0-33.0); MEAN CORPUSCULAR HGB CONC 31.8 g/dL (32.0-36.0); MEAN CORPUSCULAR VOLUME 87.4 fL (79-99); MONOCYTES % (AUTO) 6.4 % (3.0-13.0); NEUTROPHILS % (AUTO) 71.8 % (40.0-77.0); PLATELET COUNT (AUTO) 219 K/uL (130-400); RED BLOOD CELL COUNT(AUTO) 4.53 MIL/uL (4.00-5.50); RED CELL DISTRIBUTION WIDTH 17.5 % (11.0-15.5); WHITE BLOOD COUNT (AUTO) 3.6 K/uL (4.8-10.8)
[2020-11-24 04:32] LABS: ALBUMIN 2.6 g/dL (3.5-5.0); BILIRUBIN,TOTAL 0.9 mg/dL (0.2-1.0); POTASSIUM 4.4 mmol/L (3.5-5.1); TOTAL PROTEIN, SERUM 7.2 g/dL (6.0-8.3)
[2020-11-24 04:42] LABS: CREATININE 8.4 mg/dL (0.5-1.5)
[2020-11-24] MEDS: SEVELAMER HCL 800 MG TABLET PO SCH ×3 (08:00→16:07)
[2020-11-24 08:13] VITALS: BP 114/70
[2020-11-24] MEDS: HEPARIN 5,000 UNIT VIAL SQ SCH ×2 (08:30→21:24)
[2020-11-24] MEDS: FAMOTIDINE 20MG TAB PO SCH (08:35)
[2020-11-24 11:46] VITALS: BP 133/84
[2020-11-24] MEDS: MIDODRINE HCL 5 MG TABLET PO SCH ×2 (14:00→21:00)
[2020-11-24] MEDS: METRONIDAZOLE 500 MG TABLET PO SCH ×3 (14:00→23:42)
[2020-11-24 15:57] VITALS: BP 118/75
[2020-11-24] MEDS ORDERED: LACTULOSE 20 GM/30 ML UDCUP PO PRN (16:00)
[2020-11-24] MEDS: CEFEPIME HCL 1 GM VIAL IVP SCH (16:06)
[2020-11-24 19:00] VITALS: BP 135/77
[2020-11-24] MEDS: DEXTROSE 5 %-0.45 % NACL 1,000 ML IV SCH (21:25)
[2020-11-24 23:00] VITALS: BP 111/75
[2020-11-25] VITALS (22 sets, daily range): BP systolic 68–160; BP diastolic 61–99
[2020-11-25] MEDS: DEXTROSE 5 %-0.45 % NACL 1,000 ML IV SCH (02:54)
[2020-11-25] MEDS: LORAZEPAM 2 MG/ML 1 ML VIAL IVP PRN ×2 (02:55→08:39)
[2020-11-25 05:46] LABS: BASOPHILS % (AUTO) 0.7 % (0.0-5.0); EOSINOPHILS % (AUTO) 2.7 % (0.0-8.0); HEMATOCRIT 38.6 % (36-48); LYMPHOCYTES % (AUTO) 15.6 % (21.0-51.0); MEAN CORPUSCULAR HGB CONC 32.1 g/dL (32.0-36.0); MEAN CORPUSCULAR VOLUME 87.1 fL (79-99); NEUTROPHILS % (AUTO) 74.3 % (40.0-77.0); PLATELET COUNT (AUTO) 199 K/uL (130-400); RED BLOOD CELL COUNT(AUTO) 4.43 MIL/uL (4.00-5.50); RED CELL DISTRIBUTION WIDTH 17.7 % (11.0-15.5); WHITE BLOOD COUNT (AUTO) 4.5 K/uL (4.8-10.8)
[2020-11-25 06:03] LABS: ALBUMIN 2.3 g/dL (3.5-5.0); POTASSIUM 4.6 mmol/L (3.5-5.1); TOTAL PROTEIN, SERUM 6.5 g/dL (6.0-8.3)
[2020-11-25 06:06] LABS: CREATININE 10.1 mg/dL (0.5-1.5)
[2020-11-25] MEDS ORDERED: PHARMACY COMMUNICATION MISC SCH (07:00)
[2020-11-25] MEDS: SEVELAMER HCL 800 MG TABLET PO SCH ×3 (08:00→16:34)
[2020-11-25] MEDS: HEPARIN 5,000 UNIT VIAL SQ SCH ×2 (08:15→21:02)
[2020-11-25] MEDS: FAMOTIDINE 20MG TAB PO SCH (09:00)
[2020-11-25] MEDS: MIDODRINE HCL 5 MG TABLET PO SCH ×3 (09:00→20:34)
[2020-11-25] MEDS ORDERED: RISPERIDONE 1 MG TABLET PO SCH (09:00)
[2020-11-25] MEDS: 0.9%NACL 1000ML 1,000 ML IV PRN (09:39)
[2020-11-25] MEDS ORDERED: VANCOMYCIN 750MG VIAL IVPB SCH (12:07)
[2020-11-25] MEDS ORDERED: 0.9% NACL 250ML 250 ML IV SCH ×2 (12:08→14:00)
[2020-11-25] MEDS ORDERED: VANCOMYCIN KIT 1 GM/250 ML IV.KIT IV SCH (14:00)
[2020-11-25] MEDS: METRONIDAZOLE 500 MG TABLET PO SCH ×2 (14:07→20:37)
[2020-11-25] MEDS: CEFEPIME HCL 1 GM VIAL IVP SCH (14:07)
[2020-11-25] MEDS: RISPERIDONE 1 MG TABLET PO SCH (20:35)
[2020-11-25] MEDS: HYDROXYZINE 25 MG TABLET PO PRN (20:35)
[2020-11-26 00:25] VITALS: BP 109/72
[2020-11-26 03:51] VITALS: BP 114/45
[2020-11-26 05:37] LABS: BASOPHILS % (AUTO) 0.7 % (0.0-5.0); EOSINOPHILS % (AUTO) 2.4 % (0.0-8.0); HEMATOCRIT 38.5 % (36-48); LYMPHOCYTES % (AUTO) 21.6 % (21.0-51.0); MEAN CORPUSCULAR HEMOGLOBIN 27.9 pg (27.0-33.0); MEAN CORPUSCULAR HGB CONC 31.4 g/dL (32.0-36.0); MEAN CORPUSCULAR VOLUME 88.9 fL (79-99); MONOCYTES % (AUTO) 7.6 % (3.0-13.0); NEUTROPHILS % (AUTO) 67.2 % (40.0-77.0); PLATELET COUNT (AUTO) 166 K/uL (130-400); RED BLOOD CELL COUNT(AUTO) 4.33 MIL/uL (4.00-5.50); RED CELL DISTRIBUTION WIDTH 17.7 % (11.0-15.5); WHITE BLOOD COUNT (AUTO) 5.8 K/uL (4.8-10.8)
[2020-11-26 05:50] LABS: ALBUMIN 2.3 g/dL (3.5-5.0); BILIRUBIN,TOTAL 1.1 mg/dL (0.2-1.0); CREATININE 7.7 mg/dL (0.5-1.5); POTASSIUM 4.7 mmol/L (3.5-5.1); TOTAL PROTEIN, SERUM 6.7 g/dL (6.0-8.3)
[2020-11-26] MEDS: METRONIDAZOLE 500 MG TABLET PO SCH ×3 (06:00→22:00)
[2020-11-26 07:19] VITALS: BP 121/70
[2020-11-26] MEDS: SEVELAMER HCL 800 MG TABLET PO SCH ×3 (08:00→17:00)
[2020-11-26] MEDS: HEPARIN 5,000 UNIT VIAL SQ SCH ×2 (08:47→22:39)
[2020-11-26] MEDS: MIDODRINE HCL 5 MG TABLET PO SCH ×3 (08:48→21:00)
[2020-11-26] MEDS: FAMOTIDINE 20MG TAB PO SCH (08:48)
[2020-11-26] MEDS: RISPERIDONE 1 MG TABLET PO SCH ×2 (08:48→21:00)
[2020-11-26 11:00] VITALS: BP 123/78
[2020-11-26] MEDS: CEFEPIME HCL 1 GM VIAL IVP SCH (13:29)
[2020-11-26] MEDS: LORAZEPAM 2 MG/ML 1 ML VIAL IVP PRN (13:30)
[2020-11-26] MEDS ORDERED: ZIPRASIDONE MESYLATE 20 MG/VIAL IM PRN (15:00)
[2020-11-26 15:40] VITALS: BP 115/71
[2020-11-26 20:00] VITALS: BP 110/65
[2020-11-26] MEDS: DEXTROSE 5 %-0.45 % NACL 1,000 ML IV SCH (22:00)
[2020-11-27] VITALS (20 sets, daily range): BP systolic 100–149; BP diastolic 63–91
[2020-11-27] MEDS: METRONIDAZOLE 500 MG TABLET PO SCH ×3 (06:00→19:10)
[2020-11-27] MEDS: SEVELAMER HCL 800 MG TABLET PO SCH ×3 (08:00→14:53)
[2020-11-27] MEDS: FAMOTIDINE 20MG TAB PO SCH (08:18)
[2020-11-27] MEDS: MIDODRINE HCL 5 MG TABLET PO SCH ×3 (08:18→19:09)
[2020-11-27] MEDS: RISPERIDONE 1 MG TABLET PO SCH ×2 (08:18→19:09)
[2020-11-27] MEDS: HEPARIN 5,000 UNIT VIAL SQ SCH ×2 (08:30→19:59)
[2020-11-27] MEDS: LORAZEPAM 2 MG/ML 1 ML VIAL IVP PRN (09:10)
[2020-11-27 10:03] LABS: HEMATOCRIT 34.9 % (36-48); MEAN CORPUSCULAR HGB CONC 32.1 g/dL (32.0-36.0); MEAN CORPUSCULAR VOLUME 87.3 fL (79-99); NUCLEATED RED BLOOD CELLS 0.3 % (0.0-0.19); PLATELET COUNT (AUTO) 137 K/uL (130-400); RED CELL DISTRIBUTION WIDTH 17.8 % (11.0-15.5); WHITE BLOOD COUNT (AUTO) 6.1 K/uL (4.8-10.8)
[2020-11-27 10:14] LABS: CREATININE 7.2 mg/dL (0.5-1.5); POTASSIUM 4.2 mmol/L (3.5-5.1)
[2020-11-27] MEDS: 0.9%NACL 1000ML 1,000 ML IV PRN (11:15)
[2020-11-27] MEDS: HEPARIN 5,000 UNIT VIAL IJ PRN (11:16)
[2020-11-27 11:41] LABS: LYMPHOCYTES % (MANUAL) 13 % (22-44); MONOCYTES % (MANUAL) 5 % (2-9); SEGMENTED NEUTROPHILS % 82 % (40-70)
[2020-11-27 11:42] LABS: MAN.DIFF COMMENT-IMPRESSION MANUAL DIFFERENTIAL
[2020-11-27 11:43] LABS: PLATELET MORPHOLOGY COMMENT ADEQUATE
[2020-11-27] MEDS: CEFEPIME HCL 1 GM VIAL IVP SCH (14:53)
[2020-11-27] MEDS: DEXTROSE 5 %-0.45 % NACL 1,000 ML IV SCH (22:00)
[2020-11-28 04:01] VITALS: BP 94/71
[2020-11-28] MEDS: METRONIDAZOLE 500 MG TABLET PO SCH ×3 (04:32→20:51)
[2020-11-28 08:00] VITALS: BP 138/63
[2020-11-28] MEDS: SEVELAMER HCL 800 MG TABLET PO SCH ×3 (08:00→15:21)
[2020-11-28] MEDS: MIDODRINE HCL 5 MG TABLET PO SCH ×3 (09:49→20:52)
[2020-11-28] MEDS: FAMOTIDINE 20MG TAB PO SCH (09:50)
[2020-11-28] MEDS: RISPERIDONE 1 MG TABLET PO SCH ×2 (09:50→20:52)
[2020-11-28] MEDS: HEPARIN 5,000 UNIT VIAL SQ SCH ×2 (10:04→21:02)
[2020-11-28 12:00] VITALS: BP 117/90
[2020-11-28] MEDS: CEFEPIME HCL 1 GM VIAL IVP SCH (15:20)
[2020-11-28 16:00] VITALS: BP 114/70
[2020-11-28 20:00] VITALS: BP 144/53
[2020-11-28] MEDS: HYDROXYZINE 25 MG TABLET PO PRN (20:52)
[2020-11-28] MEDS: CLONAZEPAM 0.5 MG TABLET PO SCH (22:45)
[2020-11-29] VITALS (22 sets, daily range): BP systolic 90–156; BP diastolic 51–98
[2020-11-29] MEDS: LORAZEPAM 2 MG/ML 1 ML VIAL IVP PRN (02:35)
[2020-11-29] MEDS: METRONIDAZOLE 500 MG TABLET PO SCH ×3 (06:52→20:55)
[2020-11-29] MEDS: CLONAZEPAM 0.5 MG TABLET PO SCH ×3 (06:52→21:08)
[2020-11-29] MEDS: MIDODRINE HCL 5 MG TABLET PO SCH ×3 (08:25→20:55)
[2020-11-29] MEDS: SEVELAMER HCL 800 MG TABLET PO SCH ×3 (08:25→17:46)
[2020-11-29] MEDS: FAMOTIDINE 20MG TAB PO SCH (08:26)
[2020-11-29] MEDS: RISPERIDONE 1 MG TABLET PO SCH ×2 (08:26→20:55)
[2020-11-29] MEDS: HEPARIN 5,000 UNIT VIAL SQ SCH ×2 (08:30→13:00)
[2020-11-29 10:44] LABS: HEMATOCRIT 32.3 % (36-48); MEAN CORPUSCULAR HEMOGLOBIN 27.9 pg (27.0-33.0); MEAN CORPUSCULAR HGB CONC 32.2 g/dL (32.0-36.0); MEAN CORPUSCULAR VOLUME 86.6 fL (79-99); NUCLEATED RED BLOOD CELLS 0.5 % (0.0-0.19); PLATELET COUNT (AUTO) 127 K/uL (130-400); RED BLOOD CELL COUNT(AUTO) 3.73 MIL/uL (4.00-5.50); RED CELL DISTRIBUTION WIDTH 17.9 % (11.0-15.5)
[2020-11-29 10:54] LABS: POTASSIUM 4.2 mmol/L (3.5-5.1)
[2020-11-29 10:57] LABS: CREATININE 7.9 mg/dL (0.5-1.5)
[2020-11-29 11:59] LABS: BASOPHILS % (MANUAL) 1 % (0-2); EOSINOPHILS % (MANUAL) 3 % (1-6); LYMPHOCYTES % (MANUAL) 18 % (22-44); MONOCYTES % (MANUAL) 2 % (2-9); SEGMENTED NEUTROPHILS % 76 % (40-70)
[2020-11-29 12:01] LABS: PLATELET MORPHOLOGY COMMENT SLIGHTLY DECREASED
[2020-11-29 12:02] LABS: MAN.DIFF COMMENT-IMPRESSION MANUAL DIFFERENTIAL
[2020-11-29] MEDS: CEFEPIME HCL 1 GM VIAL IVP SCH (14:22)
[2020-11-29] MEDS: DEXTROSE 5 %-0.45 % NACL 1,000 ML IV SCH (15:23)
[2020-11-29] MEDS: INSULIN HUMULIN R 100 UNIT/ML 3ML SQ SCH ×2 (16:30→20:56)
[2020-11-30 06:00] VITALS: BP 88/60
[2020-11-30] MEDS: METRONIDAZOLE 500 MG TABLET PO SCH ×3 (06:42→21:01)
[2020-11-30] MEDS: CLONAZEPAM 0.5 MG TABLET PO SCH ×3 (06:42→21:01)
[2020-11-30] MEDS: INSULIN HUMULIN R 100 UNIT/ML 3ML SQ SCH ×4 (06:51→21:00)
[2020-11-30 08:40] VITALS: BP 112/83
[2020-11-30] MEDS: RISPERIDONE 1 MG TABLET PO SCH ×2 (09:32→21:01)
[2020-11-30] MEDS: SEVELAMER HCL 800 MG TABLET PO SCH ×3 (09:32→17:00)
[2020-11-30] MEDS: MIDODRINE HCL 5 MG TABLET PO SCH ×3 (09:33→21:01)
[2020-11-30] MEDS: FAMOTIDINE 20MG TAB PO SCH (09:33)
[2020-11-30] MEDS: HEPARIN 5,000 UNIT VIAL SQ SCH ×2 (09:34→21:24)
[2020-11-30 11:35] VITALS: BP 105/49
[2020-11-30] MEDS: CEFEPIME HCL 1 GM VIAL IVP SCH (14:00)
[2020-11-30 16:31] VITALS: BP 114/60
[2020-11-30 19:30] VITALS: BP 101/71
[2020-11-30] MEDS: DEXTROSE 5 %-0.45 % NACL 1,000 ML IV SCH (21:25)
[2020-11-30 23:58] VITALS: BP 120/67
[2020-12-01 03:48] VITALS: BP 119/73
[2020-12-01 05:06] LABS: MEAN CORPUSCULAR HGB CONC 32.8 g/dL (32.0-36.0); MEAN CORPUSCULAR VOLUME 85.5 fL (79-99); NUCLEATED RED BLOOD CELLS 0.2 % (0.0-0.19); RED BLOOD CELL COUNT(AUTO) 4.21 MIL/uL (4.00-5.50); RED CELL DISTRIBUTION WIDTH 18.2 % (11.0-15.5); WHITE BLOOD COUNT (AUTO) 8.3 K/uL (4.8-10.8)
[2020-12-01 05:32] LABS: ALBUMIN 2.1 g/dL (3.5-5.0); BILIRUBIN,TOTAL 1.6 mg/dL (0.2-1.0); POTASSIUM 4.3 mmol/L (3.5-5.1)
[2020-12-01 05:43] LABS: CREATININE 7.9 mg/dL (0.5-1.5)
[2020-12-01] MEDS: CLONAZEPAM 0.5 MG TABLET PO SCH ×2 (06:22→13:40)
[2020-12-01] MEDS: METRONIDAZOLE 500 MG TABLET PO SCH ×3 (06:22→21:16)
[2020-12-01] MEDS: INSULIN HUMULIN R 100 UNIT/ML 3ML SQ SCH ×4 (06:31→21:00)
[2020-12-01 07:30] VITALS: BP 100/46
[2020-12-01] MEDS: SEVELAMER HCL 800 MG TABLET PO SCH ×3 (08:00→16:53)
[2020-12-01] MEDS: RISPERIDONE 1 MG TABLET PO SCH ×2 (09:00→21:17)
[2020-12-01] MEDS: HEPARIN 5,000 UNIT VIAL SQ SCH ×2 (09:42→21:18)
[2020-12-01] MEDS: FAMOTIDINE 20MG TAB PO SCH (09:43)
[2020-12-01] MEDS: MIDODRINE HCL 5 MG TABLET PO SCH ×3 (09:43→21:16)
[2020-12-01 11:43] VITALS: BP 136/56
[2020-12-01] MEDS: CEFEPIME HCL 1 GM VIAL IVP SCH (13:41)
[2020-12-01] MEDS ORDERED: CLONAZEPAM 0.5 MG TABLET PO PRN ×2 (14:00→16:00)
[2020-12-01] MEDS ORDERED: PHARMACY COMMUNICATION MISC SCH (14:00)
[2020-12-01 16:09] VITALS: BP 107/71
[2020-12-01 19:23] VITALS: BP 101/58
[2020-12-01] MEDS: DEXTROSE 5 %-0.45 % NACL 1,000 ML IV SCH (21:17)
[2020-12-01 23:25] VITALS: BP 98/54
[2020-12-02] VITALS (19 sets, daily range): BP systolic 92–150; BP diastolic 57–85
[2020-12-02 05:32] LABS: POTASSIUM 4.7 mmol/L (3.5-5.1)
[2020-12-02 05:45] LABS: CREATININE 8.5 mg/dL (0.5-1.5)
[2020-12-02] MEDS: METRONIDAZOLE 500 MG TABLET PO SCH ×2 (06:08→14:00)
[2020-12-02] MEDS: INSULIN HUMULIN R 100 UNIT/ML 3ML SQ SCH ×3 (06:10→18:00)
[2020-12-02 06:35] LABS: BASOPHILS % (AUTO) 0.5 % (0.0-5.0); EOSINOPHILS % (AUTO) 2.4 % (0.0-8.0); HEMATOCRIT 36.4 % (36-48); LYMPHOCYTES % (AUTO) 10.7 % (21.0-51.0); MEAN CORPUSCULAR HEMOGLOBIN 27.7 pg (27.0-33.0); MEAN CORPUSCULAR HGB CONC 32.7 g/dL (32.0-36.0); MEAN CORPUSCULAR VOLUME 84.7 fL (79-99); MONOCYTES % (AUTO) 10.7 % (3.0-13.0); NEUTROPHILS % (AUTO) 74.3 % (40.0-77.0); NUCLEATED RED BLOOD CELLS 0.3 % (0.0-0.19); PLATELET COUNT (AUTO) 189 K/uL (130-400); RED CELL DISTRIBUTION WIDTH 18.3 % (11.0-15.5); WHITE BLOOD COUNT (AUTO) 8.8 K/uL (4.8-10.8)
[2020-12-02] MEDS: SEVELAMER HCL 800 MG TABLET PO SCH ×3 (08:00→17:00)
[2020-12-02] MEDS: FAMOTIDINE 20MG TAB PO SCH (09:41)
[2020-12-02] MEDS: HEPARIN 5,000 UNIT VIAL SQ SCH (09:41)
[2020-12-02] MEDS: MIDODRINE HCL 5 MG TABLET PO SCH ×3 (09:42→21:25)
[2020-12-02 10:28] LABS: INR 1.39 (0.85-1.15); PROTHROMBIN TIME 14.7 SEC (9.6-11.6)
[2020-12-02 10:30] LABS: PARTIAL THROMBOPLASTIN TIME 33.3 SEC (26.3-35.5)
[2020-12-02] MEDS ORDERED: HYDROMORPHONE 0.5 MG SYG (0.5MG/0.5ML) IVP SCH (12:30)
[2020-12-02] MEDS: CEFEPIME HCL 1 GM VIAL IVP SCH (14:00)
[2020-12-02] MEDS: 0.9%NACL 1000ML 1,000 ML IV PRN (14:59)
[2020-12-02] MEDS: HEPARIN 5,000 UNIT VIAL IJ PRN (15:03)
[2020-12-02] MEDS ORDERED: DEXTROSE 50%-WATER 50 ML DISP.SYRIN IV ONE (15:51)
[2020-12-02] MEDS ORDERED: DEXTROSE 50%-WATER 50 ML DISP.SYRIN IV PRN (16:00)
[2020-12-02] MEDS: METRONIDAZOLE 500MG/100ML BAG 100 ML IVPB SCH (21:25)
[2020-12-02] MEDS: CLONAZEPAM 0.5 MG TABLET PO SCH (21:25)
[2020-12-03] VITALS (7 sets, daily range): BP systolic 86–139; BP diastolic 56–95
[2020-12-03] MEDS: DEXTROSE 5 %-0.45 % NACL 1,000 ML IV SCH ×2 (00:16→22:00)
[2020-12-03 05:33] LABS: INR 1.42 (0.85-1.15)
[2020-12-03] MEDS: INSULIN HUMULIN R 100 UNIT/ML 3ML SQ SCH ×4 (06:00→17:08)
[2020-12-03] MEDS: METRONIDAZOLE 500MG/100ML BAG 100 ML IVPB SCH ×3 (06:30→22:45)
[2020-12-03 07:16] LABS: BASOPHILS % (AUTO) 0.5 % (0.0-5.0); EOSINOPHILS % (AUTO) 2.1 % (0.0-8.0); HEMATOCRIT 35.4 % (36-48); LYMPHOCYTES % (AUTO) 14.4 % (21.0-51.0); MEAN CORPUSCULAR HEMOGLOBIN 27.8 pg (27.0-33.0); MEAN CORPUSCULAR HGB CONC 32.5 g/dL (32.0-36.0); MEAN CORPUSCULAR VOLUME 85.5 fL (79-99); MONOCYTES % (AUTO) 12.6 % (3.0-13.0); NEUTROPHILS % (AUTO) 68.5 % (40.0-77.0); NUCLEATED RED BLOOD CELLS 0.7 % (0.0-0.19); PLATELET COUNT (AUTO) 198 K/uL (130-400); RED BLOOD CELL COUNT(AUTO) 4.14 MIL/uL (4.00-5.50); RED CELL DISTRIBUTION WIDTH 18.6 % (11.0-15.5); WHITE BLOOD COUNT (AUTO) 8.3 K/uL (4.8-10.8)
[2020-12-03 07:21] LABS: CREATININE 6.6 mg/dL (0.5-1.5); POTASSIUM 4.1 mmol/L (3.5-5.1)
[2020-12-03] MEDS: MIDODRINE HCL 5 MG TABLET PO SCH ×3 (09:02→21:06)
[2020-12-03] MEDS: SEVELAMER HCL 800 MG TABLET PO SCH ×3 (09:02→17:08)
[2020-12-03] MEDS: FAMOTIDINE 20MG TAB PO SCH (09:02)
[2020-12-03] MEDS: CEFEPIME HCL 1 GM VIAL IVP SCH (14:44)
[2020-12-03] MEDS ORDERED: HEPARIN 5,000 UNIT VIAL ONE (20:05)
[2020-12-03] MEDS: CLONAZEPAM 0.5 MG TABLET PO SCH (21:07)
[2020-12-03] MEDS: HEPARIN 5,000 UNIT VIAL SQ SCH (21:18)
[2020-12-04] VITALS (22 sets, daily range): BP systolic 116–137; BP diastolic 78–97
[2020-12-04] MEDS: METRONIDAZOLE 500MG/100ML BAG 100 ML IVPB SCH ×2 (05:21→21:54)
[2020-12-04] MEDS: INSULIN HUMULIN R 100 UNIT/ML 3ML SQ SCH ×3 (05:32→21:00)
[2020-12-04] MEDS: SEVELAMER HCL 800 MG TABLET PO SCH ×3 (08:00→17:00)
[2020-12-04] MEDS: FAMOTIDINE 20MG TAB PO SCH (09:00)
[2020-12-04] MEDS: MIDODRINE HCL 5 MG TABLET PO SCH ×2 (09:00→21:54)
[2020-12-04] MEDS ORDERED: HEPARIN 5,000 UNIT VIAL IV SCH (20:00)
[2020-12-04] MEDS: CLONAZEPAM 0.5 MG TABLET PO SCH (21:54)
[2020-12-04] MEDS: HEPARIN 5,000 UNIT VIAL SQ SCH (21:56)
[2020-12-04] MEDS: DEXTROSE 5 %-0.45 % NACL 1,000 ML IV SCH (22:00)
[2020-12-05 03:45] VITALS: BP 119/77
[2020-12-05] MEDS: METRONIDAZOLE 500MG/100ML BAG 100 ML IVPB SCH ×3 (06:07→21:07)
[2020-12-05] MEDS: INSULIN HUMULIN R 100 UNIT/ML 3ML SQ SCH ×4 (07:30→20:56)
[2020-12-05] MEDS: SEVELAMER HCL 800 MG TABLET PO SCH ×3 (08:00→17:00)
[2020-12-05 08:27] VITALS: BP 118/84
[2020-12-05] MEDS: MIDODRINE HCL 5 MG TABLET PO SCH ×3 (09:00→20:55)
[2020-12-05] MEDS: FAMOTIDINE 20MG VIAL IV SCH (09:03)
[2020-12-05] MEDS: HEPARIN 5,000 UNIT VIAL SQ SCH ×2 (09:18→21:16)
[2020-12-05 11:04] VITALS: BP 121/77
[2020-12-05] MEDS ORDERED: HONEY 1 APPL/ML TUBE TP SCH (11:30)
[2020-12-05 16:44] VITALS: BP 134/90
[2020-12-05 20:00] VITALS: BP 135/60
[2020-12-05] MEDS: RISPERIDONE 1 MG TABLET PO SCH (20:55)
[2020-12-05] MEDS: CLONAZEPAM 0.5 MG TABLET PO SCH (20:55)
[2020-12-05] MEDS: DEXTROSE 5 %-0.45 % NACL 1,000 ML IV SCH (21:07)
[2020-12-05 23:38] VITALS: BP 163/94
[2020-12-06] VITALS (19 sets, daily range): BP systolic 117–144; BP diastolic 50–99
[2020-12-06] MEDS: HYDROXYZINE 25 MG TABLET PO PRN (01:05)
[2020-12-06 06:12] LABS: BASOPHILS % (AUTO) 0.5 % (0.0-5.0); EOSINOPHILS % (AUTO) 2.4 % (0.0-8.0); HEMATOCRIT 33.7 % (36-48); MEAN CORPUSCULAR HEMOGLOBIN 27.4 pg (27.0-33.0); MEAN CORPUSCULAR HGB CONC 31.8 g/dL (32.0-36.0); MEAN CORPUSCULAR VOLUME 86.2 fL (79-99); NEUTROPHILS % (AUTO) 61.1 % (40.0-77.0); NUCLEATED RED BLOOD CELLS 0.5 % (0.0-0.19); PLATELET COUNT (AUTO) 193 K/uL (130-400); RED BLOOD CELL COUNT(AUTO) 3.91 MIL/uL (4.00-5.50); WHITE BLOOD COUNT (AUTO) 7.6 K/uL (4.8-10.8)
[2020-12-06 06:27] LABS: POTASSIUM 3.7 mmol/L (3.5-5.1)
[2020-12-06] MEDS: METRONIDAZOLE 500MG/100ML BAG 100 ML IVPB SCH ×3 (06:27→21:04)
[2020-12-06] MEDS: INSULIN HUMULIN R 100 UNIT/ML 3ML SQ SCH ×4 (07:30→20:36)
[2020-12-06] MEDS: RISPERIDONE 1 MG TABLET PO SCH ×2 (09:00→20:36)
[2020-12-06] MEDS: FAMOTIDINE 20MG VIAL IV SCH (10:01)
[2020-12-06] MEDS: MIDODRINE HCL 5 MG TABLET PO SCH ×4 (10:01→21:00)
[2020-12-06] MEDS: SEVELAMER HCL 800 MG TABLET PO SCH ×3 (10:01→17:00)
[2020-12-06] MEDS: HEPARIN 5,000 UNIT VIAL SQ SCH ×2 (10:03→21:07)
[2020-12-06] MEDS: CLONAZEPAM 0.5 MG TABLET PO SCH (20:35)
[2020-12-06] MEDS: BALSAM PERU/CASTOR OIL 60 GM TUBE TP SCH (21:08)
[2020-12-06] MEDS: DEXTROSE 5 %-0.45 % NACL 1,000 ML IV SCH (22:48)
[2020-12-07 03:44] VITALS: BP 142/76
[2020-12-07 05:45] LABS: BASOPHILS % (AUTO) 0.6 % (0.0-5.0); EOSINOPHILS % (AUTO) 2.8 % (0.0-8.0); HEMATOCRIT 34.9 % (36-48); LYMPHOCYTES % (AUTO) 15.3 % (21.0-51.0); MEAN CORPUSCULAR HEMOGLOBIN 27.5 pg (27.0-33.0); MEAN CORPUSCULAR HGB CONC 32.1 g/dL (32.0-36.0); MEAN CORPUSCULAR VOLUME 85.7 fL (79-99); MONOCYTES % (AUTO) 18.1 % (3.0-13.0); NEUTROPHILS % (AUTO) 61.2 % (40.0-77.0); NUCLEATED RED BLOOD CELLS 0.6 % (0.0-0.19); PLATELET COUNT (AUTO) 191 K/uL (130-400); RED BLOOD CELL COUNT(AUTO) 4.07 MIL/uL (4.00-5.50); RED CELL DISTRIBUTION WIDTH 20.3 % (11.0-15.5); WHITE BLOOD COUNT (AUTO) 7.1 K/uL (4.8-10.8)
[2020-12-07 05:55] LABS: CREATININE 5.1 mg/dL (0.5-1.5); POTASSIUM 3.5 mmol/L (3.5-5.1)
[2020-12-07] MEDS: METRONIDAZOLE 500MG/100ML BAG 100 ML IVPB SCH ×3 (06:23→20:19)
[2020-12-07] MEDS: INSULIN HUMULIN R 100 UNIT/ML 3ML SQ SCH ×4 (06:24→20:22)
[2020-12-07 08:00] VITALS: BP 176/76
[2020-12-07] MEDS: SEVELAMER HCL 800 MG TABLET PO SCH ×3 (08:31→17:00)
[2020-12-07] MEDS: FAMOTIDINE 20MG VIAL IV SCH (08:31)
[2020-12-07] MEDS: RISPERIDONE 1 MG TABLET PO SCH (08:31)
[2020-12-07] MEDS: HEPARIN 5,000 UNIT VIAL SQ SCH ×2 (08:32→20:22)
[2020-12-07] MEDS: MIDODRINE HCL 5 MG TABLET PO SCH ×3 (08:33→20:19)
[2020-12-07] MEDS: BALSAM PERU/CASTOR OIL 60 GM TUBE TP SCH ×3 (08:33→21:19)
[2020-12-07 12:00] VITALS: BP 124/96
[2020-12-07 16:00] VITALS: BP 121/82
[2020-12-07 20:10] VITALS: BP 113/83
[2020-12-07] MEDS ORDERED: RISPERIDONE 0.5 MG TABLET PO SCH (21:00)
[2020-12-07] MEDS: CLONAZEPAM 0.5 MG TABLET PO SCH (21:19)
[2020-12-07 23:50] VITALS: BP 131/81
[2020-12-08 04:00] VITALS: BP 114/80
[2020-12-08 04:45] LABS: HEMATOCRIT 34.9 % (36-48); MEAN CORPUSCULAR HEMOGLOBIN 27.9 pg (27.0-33.0); MEAN CORPUSCULAR HGB CONC 32.1 g/dL (32.0-36.0); MEAN CORPUSCULAR VOLUME 86.8 fL (79-99); NUCLEATED RED BLOOD CELLS 0.5 % (0.0-0.19); RED BLOOD CELL COUNT(AUTO) 4.02 MIL/uL (4.00-5.50); RED CELL DISTRIBUTION WIDTH 20.6 % (11.0-15.5); WHITE BLOOD COUNT (AUTO) 5.9 K/uL (4.8-10.8)
[2020-12-08 04:58] LABS: ALBUMIN 1.9 g/dL (3.5-5.0); BILIRUBIN,TOTAL 1.8 mg/dL (0.2-1.0); CREATININE 6.3 mg/dL (0.5-1.5); TOTAL PROTEIN, SERUM 6.6 g/dL (6.0-8.3)
[2020-12-08] MEDS: INSULIN HUMULIN R 100 UNIT/ML 3ML SQ SCH ×4 (06:05→21:37)
[2020-12-08] MEDS: METRONIDAZOLE 500MG/100ML BAG 100 ML IVPB SCH ×3 (06:33→21:42)
[2020-12-08 07:00] VITALS: BP 114/80
[2020-12-08] MEDS: SEVELAMER HCL 800 MG TABLET PO SCH ×3 (08:00→17:39)
[2020-12-08] MEDS: HEPARIN 5,000 UNIT VIAL SQ SCH ×2 (09:16→21:37)
[2020-12-08] MEDS: MIDODRINE HCL 5 MG TABLET PO SCH ×3 (09:51→21:42)
[2020-12-08] MEDS: RISPERIDONE 0.5 MG TABLET PO SCH (09:51)
[2020-12-08] MEDS: FAMOTIDINE 20MG VIAL IV SCH (09:53)
[2020-12-08 11:00] VITALS: BP 148/80
[2020-12-08] MEDS: BALSAM PERU/CASTOR OIL 60 GM TUBE TP SCH ×3 (11:57→21:43)
[2020-12-08 16:00] VITALS: BP 143/86
[2020-12-08 20:12] VITALS: BP 110/81
[2020-12-08] MEDS: CLONAZEPAM 0.5 MG TABLET PO SCH (21:42)
[2020-12-09] VITALS (21 sets, daily range): BP systolic 114–140; BP diastolic 80–98
[2020-12-09 04:41] LABS: BASOPHILS % (AUTO) 0.5 % (0.0-5.0); EOSINOPHILS % (AUTO) 1.6 % (0.0-8.0); HEMATOCRIT 31.2 % (36-48); MEAN CORPUSCULAR HEMOGLOBIN 27.6 pg (27.0-33.0); MEAN CORPUSCULAR HGB CONC 31.7 g/dL (32.0-36.0); MEAN CORPUSCULAR VOLUME 86.9 fL (79-99); MONOCYTES % (AUTO) 16.6 % (3.0-13.0); NEUTROPHILS % (AUTO) 62.6 % (40.0-77.0); NUCLEATED RED BLOOD CELLS 0.4 % (0.0-0.19); PLATELET COUNT (AUTO) 244 K/uL (130-400); RED BLOOD CELL COUNT(AUTO) 3.59 MIL/uL (4.00-5.50); WHITE BLOOD COUNT (AUTO) 7.7 K/uL (4.8-10.8)
[2020-12-09 04:54] LABS: ALBUMIN 2.1 g/dL (3.5-5.0); BILIRUBIN,TOTAL 1.9 mg/dL (0.2-1.0); CREATININE 7.7 mg/dL (0.5-1.5); POTASSIUM 4.9 mmol/L (3.5-5.1); TOTAL PROTEIN, SERUM 7.1 g/dL (6.0-8.3)
[2020-12-09] MEDS: METRONIDAZOLE 500MG/100ML BAG 100 ML IVPB SCH ×3 (06:00→21:50)
[2020-12-09] MEDS: INSULIN HUMULIN R 100 UNIT/ML 3ML SQ SCH ×4 (06:00→21:49)
[2020-12-09] MEDS: FAMOTIDINE 20MG VIAL IV SCH (08:03)
[2020-12-09] MEDS: SEVELAMER HCL 800 MG TABLET PO SCH ×3 (08:03→18:19)
[2020-12-09] MEDS: MIDODRINE HCL 5 MG TABLET PO SCH ×4 (08:03→21:36)
[2020-12-09] MEDS: BALSAM PERU/CASTOR OIL 60 GM TUBE TP SCH ×3 (08:03→21:36)
[2020-12-09] MEDS: RISPERIDONE 0.5 MG TABLET PO SCH (08:03)
[2020-12-09] MEDS: HEPARIN 5,000 UNIT VIAL SQ SCH ×2 (08:18→13:15)
[2020-12-09] MEDS: CLONAZEPAM 0.5 MG TABLET PO SCH (21:35)
[2020-12-10 04:38] VITALS: BP 117/79
[2020-12-10] MEDS: METRONIDAZOLE 500MG/100ML BAG 100 ML IVPB SCH ×3 (05:15→20:29)
[2020-12-10] MEDS: INSULIN HUMULIN R 100 UNIT/ML 3ML SQ SCH ×4 (06:15→20:28)
[2020-12-10 08:00] VITALS: BP 115/83
[2020-12-10] MEDS: SEVELAMER HCL 800 MG TABLET PO SCH ×3 (08:27→17:18)
[2020-12-10] MEDS: FAMOTIDINE 20MG VIAL IV SCH (09:54)
[2020-12-10] MEDS: RISPERIDONE 0.5 MG TABLET PO SCH (09:55)
[2020-12-10] MEDS: HEPARIN 5,000 UNIT VIAL SQ SCH ×2 (09:57→20:27)
[2020-12-10] MEDS: MIDODRINE HCL 5 MG TABLET PO SCH ×3 (09:57→20:26)
[2020-12-10] MEDS: BALSAM PERU/CASTOR OIL 60 GM TUBE TP SCH ×3 (10:14→20:29)
[2020-12-10 12:00] VITALS: BP 116/76
[2020-12-10 16:00] VITALS: BP 138/91
[2020-12-10 20:00] VITALS: BP 123/85
[2020-12-10] MEDS: CLONAZEPAM 0.5 MG TABLET PO SCH (20:26)
[2020-12-11] VITALS (20 sets, daily range): BP systolic 99–142; BP diastolic 52–100
[2020-12-11 05:06] LABS: BASOPHILS % (AUTO) 0.6 % (0.0-5.0); EOSINOPHILS % (AUTO) 2.8 % (0.0-8.0); HEMATOCRIT 33.2 % (36-48); LYMPHOCYTES % (AUTO) 17.2 % (21.0-51.0); MEAN CORPUSCULAR HEMOGLOBIN 28.1 pg (27.0-33.0); MEAN CORPUSCULAR VOLUME 90.5 fL (79-99); MONOCYTES % (AUTO) 17.9 % (3.0-13.0); NEUTROPHILS % (AUTO) 60.4 % (40.0-77.0); PLATELET COUNT (AUTO) 228 K/uL (130-400); RED BLOOD CELL COUNT(AUTO) 3.67 MIL/uL (4.00-5.50); RED CELL DISTRIBUTION WIDTH 21.9 % (11.0-15.5); WHITE BLOOD COUNT (AUTO) 7.2 K/uL (4.8-10.8)
[2020-12-11] MEDS: METRONIDAZOLE 500MG/100ML BAG 100 ML IVPB SCH ×3 (05:10→20:50)
[2020-12-11 05:21] LABS: POTASSIUM 3.5 mmol/L (3.5-5.1)
[2020-12-11] MEDS: INSULIN HUMULIN R 100 UNIT/ML 3ML SQ SCH ×4 (06:55→21:06)
[2020-12-11] MEDS: RISPERIDONE 0.5 MG TABLET PO SCH (09:13)
[2020-12-11] MEDS: FAMOTIDINE 20MG VIAL IV SCH (09:13)
[2020-12-11] MEDS: MIDODRINE HCL 5 MG TABLET PO SCH ×3 (09:13→20:02)
[2020-12-11] MEDS: SEVELAMER HCL 800 MG TABLET PO SCH ×3 (09:13→16:42)
[2020-12-11] MEDS: HEPARIN 5,000 UNIT VIAL SQ SCH ×2 (09:14→21:05)
[2020-12-11] MEDS: BALSAM PERU/CASTOR OIL 60 GM TUBE TP SCH ×3 (09:14→21:07)
[2020-12-11] MEDS: CLONAZEPAM 0.5 MG TABLET PO SCH (20:02)
[2020-12-11] MEDS: ACETAMINOPHEN 325 MG TAB PO PRN (20:03)
[2020-12-12] VITALS (9 sets, daily range): BP systolic 117–142; BP diastolic 83–98
[2020-12-12] MEDS: ACETAMINOPHEN 325 MG TAB PO PRN (02:12)
[2020-12-12] MEDS: METRONIDAZOLE 500MG/100ML BAG 100 ML IVPB SCH ×3 (05:32→21:26)
[2020-12-12] MEDS: INSULIN HUMULIN R 100 UNIT/ML 3ML SQ SCH ×4 (06:07→20:15)
[2020-12-12] MEDS: SEVELAMER HCL 800 MG TABLET PO SCH ×3 (08:37→16:15)
[2020-12-12] MEDS: BALSAM PERU/CASTOR OIL 60 GM TUBE TP SCH ×3 (09:00→20:29)
[2020-12-12] MEDS: MIDODRINE HCL 5 MG TABLET PO SCH ×3 (09:00→20:20)
[2020-12-12] MEDS: RISPERIDONE 0.5 MG TABLET PO SCH (11:02)
[2020-12-12] MEDS: FAMOTIDINE 20MG VIAL IV SCH (11:02)
[2020-12-12] MEDS: HEPARIN 5,000 UNIT VIAL SQ SCH ×2 (11:08→20:28)
[2020-12-12] MEDS: CLONAZEPAM 0.5 MG TABLET PO SCH (20:20)
[2020-12-13] VITALS (21 sets, daily range): BP systolic 93–155; BP diastolic 58–96
[2020-12-13] MEDS: ACETAMINOPHEN 325 MG TAB PO PRN ×2 (00:45→21:51)
[2020-12-13] MEDS: METRONIDAZOLE 500MG/100ML BAG 100 ML IVPB SCH ×4 (05:01→21:49)
[2020-12-13] MEDS: INSULIN HUMULIN R 100 UNIT/ML 3ML SQ SCH ×4 (06:33→20:07)
[2020-12-13] MEDS: SEVELAMER HCL 800 MG TABLET PO SCH ×3 (08:00→18:03)
[2020-12-13 08:40] LABS: HEMATOCRIT 32.5 % (36-48); MEAN CORPUSCULAR HEMOGLOBIN 28.4 pg (27.0-33.0); MEAN CORPUSCULAR HGB CONC 31.1 g/dL (32.0-36.0); MEAN CORPUSCULAR VOLUME 91.3 fL (79-99); PLATELET COUNT (AUTO) 256 K/uL (130-400); RED BLOOD CELL COUNT(AUTO) 3.56 MIL/uL (4.00-5.50); WHITE BLOOD COUNT (AUTO) 7.6 K/uL (4.8-10.8)
[2020-12-13 08:45] LABS: CREATININE 6.8 mg/dL (0.5-1.5); POTASSIUM 3.7 mmol/L (3.5-5.1)
[2020-12-13] MEDS: BALSAM PERU/CASTOR OIL 60 GM TUBE TP SCH ×3 (09:00→19:36)
[2020-12-13] MEDS: HEPARIN 5,000 UNIT VIAL SQ SCH ×2 (09:00→20:07)
[2020-12-13] MEDS: MIDODRINE HCL 5 MG TABLET PO SCH ×3 (09:00→19:36)
[2020-12-13] MEDS: RISPERIDONE 0.5 MG TABLET PO SCH (09:00)
[2020-12-13] MEDS: FAMOTIDINE 20MG VIAL IV SCH (09:00)
[2020-12-13 09:31] LABS: BASOPHILS % (MANUAL) 1 % (0-2); EOSINOPHILS % (MANUAL) 5 % (1-6); LYMPHOCYTES % (MANUAL) 19 % (22-44); MONOCYTES % (MANUAL) 20 % (2-9); PLATELET MORPHOLOGY COMMENT ADEQUATE; SEGMENTED NEUTROPHILS % 55 % (40-70)
[2020-12-13] MEDS: CLONAZEPAM 0.5 MG TABLET PO SCH (19:36)
[2020-12-14] VITALS (7 sets, daily range): BP systolic 120–146; BP diastolic 81–99
[2020-12-14] MEDS: METRONIDAZOLE 500MG/100ML BAG 100 ML IVPB SCH ×3 (05:02→20:00)
[2020-12-14] MEDS: INSULIN HUMULIN R 100 UNIT/ML 3ML SQ SCH ×4 (06:48→20:03)
[2020-12-14] MEDS: SEVELAMER HCL 800 MG TABLET PO SCH ×3 (07:42→17:12)
[2020-12-14] MEDS: FAMOTIDINE 20MG VIAL IV SCH (09:11)
[2020-12-14] MEDS: RISPERIDONE 0.5 MG TABLET PO SCH (09:11)
[2020-12-14] MEDS: BALSAM PERU/CASTOR OIL 60 GM TUBE TP SCH ×3 (09:11→20:04)
[2020-12-14] MEDS: MIDODRINE HCL 5 MG TABLET PO SCH ×3 (09:11→20:10)
[2020-12-14] MEDS: HEPARIN 5,000 UNIT VIAL SQ SCH ×2 (09:20→20:36)
[2020-12-14] MEDS: CLONAZEPAM 0.5 MG TABLET PO SCH (20:04)
[2020-12-14] MEDS ORDERED: INSULIN GLARGINE 100 UNITS/ML 10 ML VIAL SQ SCH (21:00)
[2020-12-15] MEDS: ACETAMINOPHEN 325 MG TAB PO PRN (03:14)
[2020-12-15 04:03] VITALS: BP 137/95
[2020-12-15] MEDS: METRONIDAZOLE 500MG/100ML BAG 100 ML IVPB SCH ×3 (05:37→20:13)
[2020-12-15] MEDS: INSULIN HUMULIN R 100 UNIT/ML 3ML SQ SCH ×4 (06:53→20:14)
[2020-12-15 08:07] LABS: BASOPHILS % (AUTO) 1.2 % (0.0-5.0); EOSINOPHILS % (AUTO) 2.6 % (0.0-8.0); HEMATOCRIT 30.1 % (36-48); LYMPHOCYTES % (AUTO) 21.9 % (21.0-51.0); MEAN CORPUSCULAR HEMOGLOBIN 28.4 pg (27.0-33.0); MEAN CORPUSCULAR HGB CONC 31.6 g/dL (32.0-36.0); MEAN CORPUSCULAR VOLUME 89.9 fL (79-99); MONOCYTES % (AUTO) 17.9 % (3.0-13.0); NEUTROPHILS % (AUTO) 55.6 % (40.0-77.0); PLATELET COUNT (AUTO) 264 K/uL (130-400); RED BLOOD CELL COUNT(AUTO) 3.35 MIL/uL (4.00-5.50); RED CELL DISTRIBUTION WIDTH 20.9 % (11.0-15.5); WHITE BLOOD COUNT (AUTO) 7.4 K/uL (4.8-10.8)
[2020-12-15 08:21] LABS: ALBUMIN 2.3 g/dL (3.5-5.0); BILIRUBIN,TOTAL 0.7 mg/dL (0.2-1.0); CREATININE 6.7 mg/dL (0.5-1.5); POTASSIUM 4.2 mmol/L (3.5-5.1); TOTAL PROTEIN, SERUM 7.1 g/dL (6.0-8.3)
[2020-12-15 08:30] VITALS: BP 130/80
[2020-12-15] MEDS: SEVELAMER HCL 800 MG TABLET PO SCH ×3 (09:02→17:57)
[2020-12-15] MEDS: MIDODRINE HCL 5 MG TABLET PO SCH ×3 (09:03→20:14)
[2020-12-15] MEDS: FAMOTIDINE 20MG VIAL IV SCH (09:03)
[2020-12-15] MEDS: RISPERIDONE 0.5 MG TABLET PO SCH (09:06)
[2020-12-15] MEDS: BALSAM PERU/CASTOR OIL 60 GM TUBE TP SCH ×3 (09:07→20:19)
[2020-12-15] MEDS: HEPARIN 5,000 UNIT VIAL SQ SCH ×2 (09:10→20:17)
[2020-12-15 11:00] VITALS: BP 123/89
[2020-12-15 16:00] VITALS: BP 125/88
[2020-12-15 20:07] VITALS: BP 111/75
[2020-12-15] MEDS: CLONAZEPAM 0.5 MG TABLET PO SCH (20:14)
[2020-12-15] MEDS: INSULIN GLARGINE 100 UNITS/ML 10 ML VIAL SQ SCH (20:19)
[2020-12-15 23:47] VITALS: BP 135/93
[2020-12-16] VITALS (19 sets, daily range): BP systolic 113–139; BP diastolic 78–112
[2020-12-16] MEDS: ACETAMINOPHEN 325 MG TAB PO PRN (01:42)
[2020-12-16] MEDS: METRONIDAZOLE 500MG/100ML BAG 100 ML IVPB SCH ×3 (05:45→20:32)
[2020-12-16 06:03] LABS: BASOPHILS % (AUTO) 1.2 % (0.0-5.0); EOSINOPHILS % (AUTO) 2.9 % (0.0-8.0); LYMPHOCYTES % (AUTO) 22.1 % (21.0-51.0); MEAN CORPUSCULAR HEMOGLOBIN 28.3 pg (27.0-33.0); MEAN CORPUSCULAR HGB CONC 31.3 g/dL (32.0-36.0); MEAN CORPUSCULAR VOLUME 90.4 fL (79-99); MONOCYTES % (AUTO) 15.7 % (3.0-13.0); NEUTROPHILS % (AUTO) 57.2 % (40.0-77.0); NUCLEATED RED BLOOD CELLS 0.2 % (0.0-0.19); PLATELET COUNT (AUTO) 296 K/uL (130-400); RED BLOOD CELL COUNT(AUTO) 3.43 MIL/uL (4.00-5.50); RED CELL DISTRIBUTION WIDTH 21.2 % (11.0-15.5); WHITE BLOOD COUNT (AUTO) 8.6 K/uL (4.8-10.8)
[2020-12-16 06:22] LABS: ALBUMIN 2.3 g/dL (3.5-5.0); BILIRUBIN,TOTAL 0.7 mg/dL (0.2-1.0); CREATININE 7.4 mg/dL (0.5-1.5); POTASSIUM 4.9 mmol/L (3.5-5.1); TOTAL PROTEIN, SERUM 7.3 g/dL (6.0-8.3)
[2020-12-16] MEDS: INSULIN HUMULIN R 100 UNIT/ML 3ML SQ SCH ×4 (06:46→20:37)
[2020-12-16] MEDS: RISPERIDONE 0.5 MG TABLET PO SCH (09:18)
[2020-12-16] MEDS: FAMOTIDINE 20MG VIAL IV SCH (09:18)
[2020-12-16] MEDS: SEVELAMER HCL 800 MG TABLET PO SCH ×3 (09:18→17:00)
[2020-12-16] MEDS: MIDODRINE HCL 5 MG TABLET PO SCH ×3 (09:18→20:33)
[2020-12-16] MEDS: BALSAM PERU/CASTOR OIL 60 GM TUBE TP SCH ×3 (09:21→20:33)
[2020-12-16] MEDS: HEPARIN 5,000 UNIT VIAL SQ SCH ×2 (09:21→20:40)
[2020-12-16] MEDS: CLONAZEPAM 0.5 MG TABLET PO SCH (20:32)
[2020-12-16] MEDS: INSULIN GLARGINE 100 UNITS/ML 10 ML VIAL SQ SCH (20:39)
[2020-12-17] VITALS (7 sets, daily range): BP systolic 99–142; BP diastolic 63–106
[2020-12-17] MEDS: INSULIN HUMULIN R 100 UNIT/ML 3ML SQ SCH ×7 (06:38→20:05)
[2020-12-17 07:14] LABS: ALBUMIN 2.4 g/dL (3.5-5.0); BILIRUBIN,TOTAL 0.8 mg/dL (0.2-1.0); CREATININE 6.1 mg/dL (0.5-1.5); POTASSIUM 4.8 mmol/L (3.5-5.1); TOTAL PROTEIN, SERUM 7.4 g/dL (6.0-8.3)
[2020-12-17] MEDS: FAMOTIDINE 20MG VIAL IV SCH (08:17)
[2020-12-17] MEDS: SEVELAMER HCL 800 MG TABLET PO SCH ×3 (08:17→16:45)
[2020-12-17] MEDS: MIDODRINE HCL 5 MG TABLET PO SCH ×3 (08:17→20:04)
[2020-12-17] MEDS: PAROXETINE HCL 20 MG TABLET PO SCH (08:17)
[2020-12-17] MEDS: RISPERIDONE 0.5 MG TABLET PO SCH (08:18)
[2020-12-17] MEDS: HEPARIN 5,000 UNIT VIAL SQ SCH ×2 (08:19→20:33)
[2020-12-17] MEDS: BALSAM PERU/CASTOR OIL 60 GM TUBE TP SCH ×3 (08:39→20:33)
[2020-12-17] MEDS: CLONAZEPAM 0.5 MG TABLET PO SCH (20:03)
[2020-12-17] MEDS: INSULIN GLARGINE 100 UNITS/ML 10 ML VIAL SQ SCH (21:00)
[2020-12-18 04:18] VITALS: BP 118/87
[2020-12-18] MEDS: INSULIN HUMULIN R 100 UNIT/ML 3ML SQ SCH ×8 (06:02→21:00)
[2020-12-18 07:16] LABS: HEPATITIS Bs ANTIGEN SCREEN P Negative (Negative)
[2020-12-18 07:30] VITALS: BP 118/78
[2020-12-18] MEDS: SEVELAMER HCL 800 MG TABLET PO SCH ×3 (08:51→16:35)
[2020-12-18] MEDS: PAROXETINE HCL 20 MG TABLET PO SCH (08:51)
[2020-12-18] MEDS: FAMOTIDINE 20MG VIAL IV SCH (08:51)
[2020-12-18] MEDS: BALSAM PERU/CASTOR OIL 60 GM TUBE TP SCH ×3 (08:51→21:56)
[2020-12-18] MEDS: MIDODRINE HCL 5 MG TABLET PO SCH ×3 (08:51→21:47)
[2020-12-18] MEDS: RISPERIDONE 0.5 MG TABLET PO SCH (08:51)
[2020-12-18] MEDS: HEPARIN 5,000 UNIT VIAL SQ SCH ×2 (08:58→21:50)
[2020-12-18 11:00] VITALS: BP 173/92
[2020-12-18 16:00] VITALS: BP 109/81
[2020-12-18 19:46] VITALS: BP 118/82
[2020-12-18] MEDS: CLONAZEPAM 0.5 MG TABLET PO SCH (21:47)
[2020-12-18] MEDS: INSULIN GLARGINE 100 UNITS/ML 10 ML VIAL SQ SCH (21:51)
[2020-12-18 23:48] VITALS: BP 124/94
[2020-12-19] VITALS (21 sets, daily range): BP systolic 92–141; BP diastolic 63–98
[2020-12-19] MEDS: INSULIN HUMULIN R 100 UNIT/ML 3ML SQ SCH ×8 (06:40→21:00)
[2020-12-19] MEDS: RISPERIDONE 0.5 MG TABLET PO SCH (08:11)
[2020-12-19] MEDS: SEVELAMER HCL 800 MG TABLET PO SCH (08:11)
[2020-12-19] MEDS: PAROXETINE HCL 20 MG TABLET PO SCH (08:11)
[2020-12-19] MEDS: MIDODRINE HCL 5 MG TABLET PO SCH ×3 (08:11→20:43)
[2020-12-19] MEDS: FAMOTIDINE 20MG VIAL IV SCH (08:12)
[2020-12-19] MEDS: BALSAM PERU/CASTOR OIL 60 GM TUBE TP SCH ×3 (08:18→21:44)
[2020-12-19] MEDS: HEPARIN 5,000 UNIT VIAL SQ SCH ×2 (08:18→21:48)
[2020-12-19] MEDS ORDERED: HEPARIN 5,000 UNIT VIAL IV SCH (12:00)
[2020-12-19] MEDS: CLONAZEPAM 0.5 MG TABLET PO SCH (20:43)
[2020-12-19] MEDS: INSULIN GLARGINE 100 UNITS/ML 10 ML VIAL SQ SCH (20:48)
[2020-12-20] VITALS (17 sets, daily range): BP systolic 111–142; BP diastolic 66–93
[2020-12-20] MEDS: INSULIN HUMULIN R 100 UNIT/ML 3ML SQ SCH ×8 (05:50→21:00)
[2020-12-20] MEDS: RISPERIDONE 0.5 MG TABLET PO SCH (09:00)
[2020-12-20] MEDS: MIDODRINE HCL 5 MG TABLET PO SCH ×3 (09:00→20:34)
[2020-12-20] MEDS: PAROXETINE HCL 20 MG TABLET PO SCH (09:00)
[2020-12-20] MEDS: FAMOTIDINE 20MG VIAL IV SCH (09:00)
[2020-12-20] MEDS: HEPARIN 5,000 UNIT VIAL SQ SCH ×2 (09:00→21:56)
[2020-12-20] MEDS: BALSAM PERU/CASTOR OIL 60 GM TUBE TP SCH ×3 (09:52→22:01)
[2020-12-20] MEDS: 0.9%NACL 1000ML 1,000 ML IV PRN (13:12)
[2020-12-20] MEDS: CLONAZEPAM 0.5 MG TABLET PO SCH (20:34)
[2020-12-20] MEDS: INSULIN GLARGINE 100 UNITS/ML 10 ML VIAL SQ SCH (21:00)
[2020-12-20] MEDS: HYDROXYZINE 25 MG TABLET PO PRN (22:00)
[2020-12-21 00:08] VITALS: BP 126/84
[2020-12-21 03:31] VITALS: BP 155/85
[2020-12-21] MEDS: INSULIN HUMULIN R 100 UNIT/ML 3ML SQ SCH ×8 (05:03→21:00)
[2020-12-21 08:00] VITALS: BP 127/45
[2020-12-21] MEDS: PAROXETINE HCL 20 MG TABLET PO SCH (10:01)
[2020-12-21] MEDS: MIDODRINE HCL 5 MG TABLET PO SCH ×3 (10:01→19:40)
[2020-12-21] MEDS: RISPERIDONE 0.5 MG TABLET PO SCH (10:01)
[2020-12-21] MEDS: HEPARIN 5,000 UNIT VIAL SQ SCH ×2 (10:02→21:03)
[2020-12-21] MEDS: BALSAM PERU/CASTOR OIL 60 GM TUBE TP SCH ×3 (10:03→19:44)
[2020-12-21] MEDS: FAMOTIDINE 20MG VIAL IV SCH (10:31)
[2020-12-21 12:00] VITALS: BP 135/94
[2020-12-21 16:00] VITALS: BP 138/91
[2020-12-21] MEDS: CLONAZEPAM 0.5 MG TABLET PO SCH (19:40)
[2020-12-21] MEDS: ACETAMINOPHEN 325 MG TAB PO PRN (19:41)
[2020-12-21 19:55] VITALS: BP 138/76
[2020-12-21] MEDS: INSULIN GLARGINE 100 UNITS/ML 10 ML VIAL SQ SCH (21:38)
[2020-12-22] MEDS: HYDROXYZINE 25 MG TABLET PO PRN (00:13)
[2020-12-22 00:17] VITALS: BP 113/85
[2020-12-22 03:54] VITALS: BP 99/68
[2020-12-22 03:59] VITALS: BP 99/68
[2020-12-22] MEDS: INSULIN HUMULIN R 100 UNIT/ML 3ML SQ SCH ×4 (05:31→16:30)
[2020-12-22 07:49] VITALS: BP 118/74
[2020-12-22] MEDS: MIDODRINE HCL 5 MG TABLET PO SCH ×2 (09:38→14:34)
[2020-12-22] MEDS: FAMOTIDINE 20MG VIAL IV SCH (09:38)
[2020-12-22] MEDS: RISPERIDONE 0.5 MG TABLET PO SCH (09:38)
[2020-12-22] MEDS: PAROXETINE HCL 20 MG TABLET PO SCH (09:38)
[2020-12-22] MEDS: HEPARIN 5,000 UNIT VIAL SQ SCH (09:43)
[2020-12-22 11:16] VITALS: BP 152/73
[2020-12-22] MEDS: ACETAMINOPHEN 325 MG TAB PO PRN (14:34)
[2020-12-22 15:39] VITALS: BP 116/79
[2020-12-22] MEDS ORDERED: INSULIN GLARGINE 100 UNITS/ML 10 ML VIAL SQ SCH ×2 (21:00)
== END 2020-12-22 19:40 | DRG 720 ==
LOC: EDH 09:33 → EDHIP 09:37 → UNDOADMIN 12:09 → 2AH 11-19 22:10 → 4BH 11-24 23:42 → 3BH 12-09 15:49
PROVIDERS: ADMIT Internal Medicine; ATTEND Internal Medicine
PROC: 5A1D70Z Performance of Urinary Filtration, Intermittent, Less than 6 Hours Per Day (ICD-10-PCS; principal; 2020-11-20)
PROC: 5A1D70Z Performance of Urinary Filtration, Intermittent, Less than 6 Hours Per Day (ICD-10-PCS; 2020-11-22)
PROC: 5A1D70Z Performance of Urinary Filtration, Intermittent, Less than 6 Hours Per Day (ICD-10-PCS; 2020-11-25)
PROC: 5A1D70Z Performance of Urinary Filtration, Intermittent, Less than 6 Hours Per Day (ICD-10-PCS; 2020-11-27)
PROC: 5A1D70Z Performance of Urinary Filtration, Intermittent, Less than 6 Hours Per Day (ICD-10-PCS; 2020-11-29)
PROC: 5A1D70Z Performance of Urinary Filtration, Intermittent, Less than 6 Hours Per Day (ICD-10-PCS; 2020-12-04)
PROC: 5A1D70Z Performance of Urinary Filtration, Intermittent, Less than 6 Hours Per Day (ICD-10-PCS; 2020-12-06)
PROC: 5A1D70Z Performance of Urinary Filtration, Intermittent, Less than 6 Hours Per Day (ICD-10-PCS; 2020-12-09)
PROC: 5A1D70Z Performance of Urinary Filtration, Intermittent, Less than 6 Hours Per Day (ICD-10-PCS; 2020-12-11)
PROC: 5A1D70Z Performance of Urinary Filtration, Intermittent, Less than 6 Hours Per Day (ICD-10-PCS; 2020-12-13)
PROC: 5A1D70Z Performance of Urinary Filtration, Intermittent, Less than 6 Hours Per Day (ICD-10-PCS; 2020-12-16)
PROC: 5A1D70Z Performance of Urinary Filtration, Intermittent, Less than 6 Hours Per Day (ICD-10-PCS; 2020-12-19)
PROC: 5A1D70Z Performance of Urinary Filtration, Intermittent, Less than 6 Hours Per Day (ICD-10-PCS; 2020-12-20)
DX: A41.9 Sepsis, unspecified organism (principal); U07.1 COVID-19; J96.91 Respiratory failure, unspecified with hypoxia; A04.72 Enterocolitis due to Clostridium difficile, not specified as recurrent; G93.49 Other encephalopathy; N18.6 End stage renal disease; J12.82 Pneumonia due to coronavirus disease 2019; I12.0 Hypertensive chronic kidney disease with stage 5 chronic kidney disease or end stage renal disease; L02.416 Cutaneous abscess of left lower limb; L97.129 Non-pressure chronic ulcer of left thigh with unspecified severity; L03.119 Cellulitis of unspecified part of limb; D63.8 Anemia in other chronic diseases classified elsewhere; E66.9 Obesity, unspecified; E78.00 Pure hypercholesterolemia, unspecified; E87.5 Hyperkalemia; E88.81 Metabolic syndrome and other insulin resistance; E11.22 Type 2 diabetes mellitus with diabetic chronic kidney disease; E11.51 Type 2 diabetes mellitus with diabetic peripheral angiopathy without gangrene; E11.649 Type 2 diabetes mellitus with hypoglycemia without coma; E11.65 Type 2 diabetes mellitus with hyperglycemia; F41.9 Anxiety disorder, unspecified; F39 Unspecified mood [affective] disorder; F32.9 Major depressive disorder, single episode, unspecified; F63.9 Impulse disorder, unspecified; J45.909 Unspecified asthma, uncomplicated; Z68.28 Body mass index [BMI] 28.0-28.9, adult; Z99.2 Dependence on renal dialysis; Z74.01 Bed confinement status; Z78.9 Other specified health status; Z79.4 Long term (current) use of insulin; Z91.19 Patient's noncompliance with other medical treatment and regimen; Z83.3 Family history of diabetes mellitus; Z82.49 Family history of ischemic heart disease and other diseases of the circulatory system
CPT/HCPCS: 11042; 11045; 36415; 36600; 70450; 71045; 74176; 80048; 80053; 80202; 82010; 82140; 82270; 82435; 82550; 82728; 82803; 82947; 82948; 83605; 83615; 83630; 83735; 84100; 84132; 84295; 84484; 84703; 85018; 85025; 85027; 85378; 85610; 85730; 86140; 86704; 86706; 87040; 87340; 87426; 87507; 87635; 87804; 87880; 90935; 92526; 92610; 93005; 93970; 97039; 97605; 99211; G0378; J0692; J1170; J1644; J1815; J1885; J2060; J2405; J3370; J3486; J3490; J7030; J7042; J7050; J7070

== ENCOUNTER 2021-01-26 23:32 | Inpatient (IN) | payer MEDICAID ==
[~2021-01-26] VITALS: Ht 157.5 cm; Wt 82.7 kg
[2021-01-27] VITALS (21 sets, daily range): BP systolic 103–153; BP diastolic 69–96
[2021-01-27 00:25] LABS: CREATININE 7.3 mg/dL (0.5-1.5); POTASSIUM 5.3 mmol/L (3.5-5.1)
[2021-01-27 00:30] LABS: ALBUMIN 2.9 g/dL (3.5-5.0); BASOPHILS % (AUTO) 0.5 % (0.0-5.0); BILIRUBIN,TOTAL 1.9 mg/dL (0.2-1.0); EOSINOPHILS % (AUTO) 4.4 % (0.0-8.0); HEMATOCRIT 32.6 % (36-48); LYMPHOCYTES % (AUTO) 15.4 % (21.0-51.0); MEAN CORPUSCULAR HEMOGLOBIN 28.5 pg (27.0-33.0); MEAN CORPUSCULAR HGB CONC 32.5 g/dL (32.0-36.0); MEAN CORPUSCULAR VOLUME 87.6 fL (79-99); NEUTROPHILS % (AUTO) 68.3 % (40.0-77.0); PLATELET COUNT (AUTO) 173 K/uL (130-400); RED BLOOD CELL COUNT(AUTO) 3.72 MIL/uL (4.00-5.50); RED CELL DISTRIBUTION WIDTH 17.9 % (11.0-15.5); TOTAL PROTEIN, SERUM 8.7 g/dL (6.0-8.3); WHITE BLOOD COUNT (AUTO) 7.7 K/uL (4.8-10.8)
[2021-01-27] MEDS ORDERED: NITROGLYCERIN 0.4 MG SL TAB SL PRN (04:00)
[2021-01-27] MEDS ORDERED: KAYEXALATE 15GM/60ML PO ONE (04:00)
[2021-01-27] MEDS ORDERED: LACTULOSE 20 GM/30 ML UDCUP PO PRN (04:00)
[2021-01-27] MEDS ORDERED: HYDRALAZINE 20MG/ML VIAL IV PRN (04:00)
[2021-01-27] MEDS ORDERED: ACETAMINOPHEN 325 MG TAB PO PRN ×2 (04:00)
[2021-01-27] MEDS ORDERED: ONDANSETRON 4MG INJ IV PRN (04:00)
[2021-01-27 04:13] LABS: ABG BASE EXCESS -7.5 mmol/L (-2.0-3.0); ABG HCO3 16.5 mmol/L (21.0-28.0); ABG OXYGEN SATURATION 92.1 % (95.0-99.0); ABG PCO2 29 mmHg (32-45)
[2021-01-27 04:31] LABS: CHOLESTEROL 146 mg/dL (<200); HDL CHOLESTEROL 29 mg/dL (35-85); LDL DIRECT 54 mg/dL (0-99); TRIGLYCERIDES 100 mg/dL (30-200)
[2021-01-27 04:35] LABS: HEMOGLOBIN A1C 6.9 % (4.0-6.0)
[2021-01-27 04:36] LABS: % IRON SATURATION 20.5 % (22-44)
[2021-01-27] MEDS ORDERED: ASCO500T10 PO (04:49)
[2021-01-27] MEDS ORDERED: SEVE800T27 PO (04:49)
[2021-01-27] MEDS ORDERED: CARV3.12 PO (04:49)
[2021-01-27] MEDS ORDERED: ACET-2247 PO (04:49)
[2021-01-27] MEDS ORDERED: AEC81 PO (04:49)
[2021-01-27] MEDS ORDERED: SEVE2.4P PO (04:49)
[2021-01-27] MEDS ORDERED: FAMO40TA75 PO (04:49)
[2021-01-27] MEDS ORDERED: INSREG SQ (04:49)
[2021-01-27] MEDS ORDERED: ZINC220C6 PO (04:49)
[2021-01-27] MEDS ORDERED: ONDA4TAB4 PO (04:49)
[2021-01-27] MEDS ORDERED: INSU100V12 SQ (04:49)
[2021-01-27] MEDS ORDERED: SACU1TAB PO (04:49)
[2021-01-27] MEDS ORDERED: DOCU100C33 PO (04:49)
[2021-01-27] MEDS ORDERED: FOLI1TAB85 PO (04:49)
[2021-01-27] MEDS ORDERED: AURYXIA PO (04:49)
[2021-01-27] MEDS ORDERED: ARIP15TA2 PO (04:49)
[2021-01-27] MEDS ORDERED: KAYEXALATE 15GM/60ML ONE (05:04)
[2021-01-27] MEDS: MORPHINE 2 MG SYG IV PRN ×3 (05:48→22:13)
[2021-01-27 05:49] LABS: INR 1.09 (0.85-1.15); PROTHROMBIN TIME 11.8 SEC (9.6-11.6)
[2021-01-27 05:51] LABS: PARTIAL THROMBOPLASTIN TIME 25.3 SEC (26.3-35.5)
[2021-01-27] MEDS: INSULIN HUMULIN R 100 UNIT/ML 3ML SQ SCH ×7 (06:34→21:00)
[2021-01-27] MEDS ORDERED: ENOXAPARIN SODIUM 40 MG/0.4 ML SYRINGE SQ SCH (09:00)
[2021-01-27] MEDS: FAMOTIDINE 20MG VIAL IV SCH (09:35)
[2021-01-27] MEDS ORDERED: GADOTERATE MEGLUMINE 10 MMOL/20 ML VIAL IV ONE (11:48)
[2021-01-27] MEDS ORDERED: 0.9%NACL 1000ML 2,000 ML IV ONE (16:46)
[2021-01-27] MEDS: HEPARIN 5,000 UNIT VIAL SQ PRN (20:28)
[2021-01-27] MEDS ORDERED: HEPARIN 5,000 UNIT VIAL SQ PRN (20:30)
[2021-01-27] MEDS ORDERED: INSULIN GLARGINE 100 UNITS/ML 10 ML VIAL SQ SCH (21:00)
[2021-01-27] MEDS: CARVEDILOL 3.125 MG TABLET PO SCH (22:14)
[2021-01-28 02:35] VITALS: BP 120/81
[2021-01-28] MEDS: MORPHINE 2 MG SYG IV PRN ×3 (02:35→22:52)
[2021-01-28 04:14] VITALS: BP 114/75
[2021-01-28 04:34] LABS: BASOPHILS % (AUTO) 0.8 % (0.0-5.0); EOSINOPHILS % (AUTO) 8.8 % (0.0-8.0); HEMATOCRIT 32.7 % (36-48); LYMPHOCYTES % (AUTO) 17.2 % (21.0-51.0); MEAN CORPUSCULAR HEMOGLOBIN 28.2 pg (27.0-33.0); MEAN CORPUSCULAR HGB CONC 31.8 g/dL (32.0-36.0); MEAN CORPUSCULAR VOLUME 88.6 fL (79-99); PLATELET COUNT (AUTO) 151 K/uL (130-400); RED BLOOD CELL COUNT(AUTO) 3.69 MIL/uL (4.00-5.50); RED CELL DISTRIBUTION WIDTH 18.2 % (11.0-15.5); WHITE BLOOD COUNT (AUTO) 6.4 K/uL (4.8-10.8)
[2021-01-28 04:45] LABS: ALBUMIN 2.7 g/dL (3.5-5.0); CREATININE 5.9 mg/dL (0.5-1.5); POTASSIUM 4.9 mmol/L (3.5-5.1); TOTAL PROTEIN, SERUM 8.2 g/dL (6.0-8.3)
[2021-01-28] MEDS: INSULIN HUMULIN R 100 UNIT/ML 3ML SQ SCH ×7 (06:01→21:00)
[2021-01-28] MEDS: SEVELAMER HCL 800 MG TABLET PO SCH ×3 (06:42→16:34)
[2021-01-28] MEDS: ENOXAPARIN SODIUM 30 MG/0.3 ML SQ SCH (07:54)
[2021-01-28] MEDS: CARVEDILOL 3.125 MG TABLET PO SCH ×2 (07:54→21:24)
[2021-01-28] MEDS: ASPIRIN 81 MG EC TAB PO SCH (07:54)
[2021-01-28] MEDS: FAMOTIDINE 20MG VIAL IV SCH (07:54)
[2021-01-28 08:14] LABS: HEPATITIS Bs ANTIGEN SCREEN P Negative (Negative)
[2021-01-28 08:17] VITALS: BP 120/75
[2021-01-28 11:53] VITALS: BP 104/70
[2021-01-28 16:46] VITALS: BP 115/77
[2021-01-28 21:00] VITALS: BP 117/72
[2021-01-28] MEDS ORDERED: ARIPIPRAZOLE 5 MG TABLET PO SCH (21:00)
[2021-01-29] VITALS (19 sets, daily range): BP systolic 102–150; BP diastolic 58–90
[2021-01-29] MEDS: INSULIN HUMULIN R 100 UNIT/ML 3ML SQ SCH ×6 (06:14→17:00)
[2021-01-29] MEDS: MORPHINE 2 MG SYG IV PRN (06:29)
[2021-01-29] MEDS: SEVELAMER HCL 800 MG TABLET PO SCH ×3 (06:29→18:05)
[2021-01-29] MEDS: ASPIRIN 81 MG EC TAB PO SCH (08:49)
[2021-01-29] MEDS: ENOXAPARIN SODIUM 30 MG/0.3 ML SQ SCH (08:49)
[2021-01-29] MEDS: CARVEDILOL 3.125 MG TABLET PO SCH (08:54)
[2021-01-29] MEDS: FAMOTIDINE 20MG VIAL IV SCH (08:55)
[2021-01-29 13:28] LABS: MEAN CORPUSCULAR HEMOGLOBIN 28.1 pg (27.0-33.0); MEAN CORPUSCULAR HGB CONC 31.4 g/dL (32.0-36.0); MEAN CORPUSCULAR VOLUME 89.5 fL (79-99); NUCLEATED RED BLOOD CELLS 0.4 % (0.0-0.19); PLATELET COUNT (AUTO) 184 K/uL (130-400); RED BLOOD CELL COUNT(AUTO) 3.91 MIL/uL (4.00-5.50); RED CELL DISTRIBUTION WIDTH 18.7 % (11.0-15.5); WHITE BLOOD COUNT (AUTO) 5.5 K/uL (4.8-10.8)
[2021-01-29 13:34] LABS: ALBUMIN 2.8 g/dL (3.5-5.0); BILIRUBIN,TOTAL 1.6 mg/dL (0.2-1.0); CREATININE 7.6 mg/dL (0.5-1.5); TOTAL PROTEIN, SERUM 8.7 g/dL (6.0-8.3)
[2021-01-29 14:22] LABS: POTASSIUM 5.6 mmol/L (3.5-5.1)
[2021-01-29 14:30] LABS: EOSINOPHILS % (MANUAL) 5 % (1-6); LYMPHOCYTES % (MANUAL) 12 % (22-44); MAN.DIFF COMMENT-IMPRESSION MANUAL DIFFERENTIAL; MONOCYTES % (MANUAL) 16 % (2-9); PLATELET MORPHOLOGY COMMENT ADEQUATE; SEGMENTED NEUTROPHILS % 67 % (40-70)
[2021-01-29] MEDS: HEPARIN 5,000 UNIT VIAL SQ PRN (18:05)
[2021-03-30] MEDS ORDERED: MELA5TAB14 PO (12:42)
[2021-03-30] MEDS ORDERED: SULF1TAB42 PO (12:42)
[2021-03-30] MEDS ORDERED: TRAZ-187 PO (12:42)
[2021-03-30] MEDS ORDERED: FAMO20TA8 PO (12:42)
[2021-03-30] MEDS ORDERED: FOLI0.8T2 PO (12:42)
[2021-03-30] MEDS ORDERED: LACT10SO9 PO (12:42)
[2021-03-30] MEDS ORDERED: CALC667C10 PO (12:42)
== END 2021-01-29 18:50 | disposition home or self-care (01) | DRG 425 ==
LOC: EDH 23:32 → OBSVTOIN 23:33 → EDHIP 23:33 → 2AH 01-27 06:08 → 4BH 01-27 21:39
PROVIDERS: ADMIT Internal Medicine; ATTEND Internal Medicine
PROC: 5A1D70Z Performance of Urinary Filtration, Intermittent, Less than 6 Hours Per Day (ICD-10-PCS; principal; 2021-01-27)
PROC: 5A1D70Z Performance of Urinary Filtration, Intermittent, Less than 6 Hours Per Day (ICD-10-PCS; 2021-01-29)
DX: E87.70 Fluid overload, unspecified (principal); U07.1 COVID-19; I13.2 Hypertensive heart and chronic kidney disease with heart failure and with stage 5 chronic kidney disease, or end stage renal disease; K85.90 Acute pancreatitis without necrosis or infection, unspecified; E44.0 Moderate protein-calorie malnutrition; E11.22 Type 2 diabetes mellitus with diabetic chronic kidney disease; N18.6 End stage renal disease; R18.8 Other ascites; D64.9 Anemia, unspecified; E87.5 Hyperkalemia; E11.51 Type 2 diabetes mellitus with diabetic peripheral angiopathy without gangrene; K74.60 Unspecified cirrhosis of liver; F41.9 Anxiety disorder, unspecified; I50.9 Heart failure, unspecified; E78.00 Pure hypercholesterolemia, unspecified; R79.89 Other specified abnormal findings of blood chemistry; K76.9 Liver disease, unspecified; Z99.2 Dependence on renal dialysis; Z91.018 Allergy to other foods; Z86.16 Personal history of COVID-19; Z83.3 Family history of diabetes mellitus; Z82.49 Family history of ischemic heart disease and other diseases of the circulatory system
CPT/HCPCS: 36415; 36600; 71045; 74181; 76700; 78227; 80053; 80061; 82435; 82550; 82803; 82947; 82948; 83036; 83540; 83550; 83605; 83690; 83880; 84132; 84295; 84484; 85018; 85025; 85378; 85610; 85730; 86704; 86706; 86804; 87340; 87522; 87635; 90935; 93005; A9537; G0378; J1644; J1650; J1815; J3490; J7030

== ENCOUNTER 2021-02-01 00:46 | Inpatient (IN) | payer MEDICAID ==
[~2021-02-01] VITALS: Ht 157.5 cm; Wt 81.2 kg
[~2021-02-01 00:46] MED LIST changes: +ACET-2247 PO; +AEC81 PO; +ARIP15TA2 PO; +ASCO500T10 PO; +AURYXIA PO; +CARV3.12 PO; +DOCU100C33 PO; +FAMO40TA75 PO; +FOLI1TAB85 PO; -HYDR-4060 PO; +INSREG SQ; +INSU100V12 SQ; -LEVO250T59 PO; +ONDA4TAB4 PO; -SEVE800 PO; +SEVE800T27 PO; +ZINC220C6 PO
[2021-02-01 02:44] LABS: BASOPHILS % (AUTO) 0.6 % (0.0-5.0); EOSINOPHILS % (AUTO) 7.7 % (0.0-8.0); HEMATOCRIT 33.1 % (36-48); LYMPHOCYTES % (AUTO) 14.9 % (21.0-51.0); MEAN CORPUSCULAR HEMOGLOBIN 29.9 pg (27.0-33.0); MEAN CORPUSCULAR HGB CONC 32.9 g/dL (32.0-36.0); MEAN CORPUSCULAR VOLUME 90.7 fL (79-99); NEUTROPHILS % (AUTO) 66.4 % (40.0-77.0); PLATELET COUNT (AUTO) 144 K/uL (130-400); RED BLOOD CELL COUNT(AUTO) 3.65 MIL/uL (4.00-5.50); RED CELL DISTRIBUTION WIDTH 19.4 % (11.0-15.5)
[2021-02-01 02:56] LABS: INR 1.05 (0.85-1.15); PROTHROMBIN TIME 11.4 SEC (9.6-11.6)
[2021-02-01 02:59] LABS: POTASSIUM 5.3 mmol/L (3.5-5.1)
[2021-02-01 03:00] LABS: BILIRUBIN,TOTAL 2.5 mg/dL (0.2-1.0); CREATININE 4.6 mg/dL (0.5-1.5); TOTAL PROTEIN, SERUM 9.1 g/dL (6.0-8.3)
[2021-02-01 03:12] LABS: PARTIAL THROMBOPLASTIN TIME 19.4 SEC (26.3-35.5)
[2021-02-01] MEDS ORDERED: GLUCAGON 1MG KIT 1 MG ML IM PRN (05:00)
[2021-02-01] MEDS ORDERED: ONDANSETRON 4MG INJ IV PRN (05:00)
[2021-02-01] MEDS ORDERED: NITROGLYCERIN 0.4 MG SL TAB SL PRN (05:00)
[2021-02-01] MEDS ORDERED: INSULIN HUMULIN R 100 UNIT/ML 3ML IV ONE (05:30)
[2021-02-01] MEDS ORDERED: DEXTROSE 50%-WATER 50 ML DISP.SYRIN IV ONE (05:30)
[2021-02-01 05:41] LABS: HEMOGLOBIN A1C 6.9 % (4.0-6.0)
[2021-02-01] MEDS: HYDROMORPHONE 0.5 MG SYG (0.5MG/0.5ML) IVP PRN ×3 (07:33→21:45)
[2021-02-01] MEDS: HEPARIN 5,000 UNIT VIAL SQ SCH ×3 (08:17→21:14)
[2021-02-01] MEDS: FAMOTIDINE 20MG TAB PO SCH ×2 (08:17→21:11)
[2021-02-01] MEDS: INSULIN HUMULIN R 100 UNIT/ML 3ML SQ SCH ×4 (08:17→21:00)
[2021-02-01] MEDS: DEXTROSE 50%-WATER 50 ML DISP.SYRIN IV PRN ×2 (11:33→15:55)
[2021-02-01 13:02] VITALS: BP 154/81
[2021-02-01] MEDS ORDERED: KAYEXALATE 15GM/60ML PO ONE ×2 (14:40→17:00)
[2021-02-01 16:27] VITALS: BP 101/74
[2021-02-01 20:04] VITALS: BP 121/86
[2021-02-02 00:04] VITALS: BP 124/79
[2021-02-02] MEDS: HYDROMORPHONE 0.5 MG SYG (0.5MG/0.5ML) IVP PRN ×3 (03:51→17:47)
[2021-02-02 04:04] VITALS: BP 131/83
[2021-02-02 04:23] LABS: HEMATOCRIT 35.5 % (36-48); MEAN CORPUSCULAR HEMOGLOBIN 28.4 pg (27.0-33.0); MEAN CORPUSCULAR HGB CONC 30.7 g/dL (32.0-36.0); MEAN CORPUSCULAR VOLUME 92.4 fL (79-99); PLATELET COUNT (AUTO) 180 K/uL (130-400); RED BLOOD CELL COUNT(AUTO) 3.84 MIL/uL (4.00-5.50); RED CELL DISTRIBUTION WIDTH 19.5 % (11.0-15.5); WHITE BLOOD COUNT (AUTO) 7.7 K/uL (4.8-10.8)
[2021-02-02 04:44] LABS: ALBUMIN 2.9 g/dL (3.5-5.0); BILIRUBIN,DIRECT 1.6 mg/dL (0.0-0.3); BILIRUBIN,TOTAL 2.5 mg/dL (0.2-1.0); MAGNESIUM 2.5 mg/dL (1.80-2.40); PHOSPHORUS 8.4 mg/dL (2.5-4.9); POTASSIUM 5.3 mmol/L (3.5-5.1); TOTAL PROTEIN, SERUM 8.6 g/dL (6.0-8.3)
[2021-02-02] MEDS ORDERED: KAYEXALATE 15GM/60ML PO ONE (05:30)
[2021-02-02 05:41] LABS: BAND NEUTROPHILS % (MANUAL) 3 % (0-2); EOSINOPHILS % (MANUAL) 12 % (1-6); LYMPHOCYTES % (MANUAL) 18 % (22-44); MAN.DIFF COMMENT-IMPRESSION MANUAL DIFFERENTIAL; MONOCYTES % (MANUAL) 8 % (2-9); SEGMENTED NEUTROPHILS % 59 % (40-70)
[2021-02-02] MEDS: INSULIN HUMULIN R 100 UNIT/ML 3ML SQ SCH ×2 (06:10→20:51)
[2021-02-02 08:27] VITALS: BP 136/89
[2021-02-02] MEDS: FAMOTIDINE 20MG TAB PO SCH ×2 (11:10→20:49)
[2021-02-02 11:32] VITALS: BP 116/84
[2021-02-02] MEDS ORDERED: HONEY 1 APPL/ML TUBE TP SCH (16:30)
[2021-02-02 17:10] VITALS: BP 117/82
[2021-02-02 20:23] VITALS: BP 140/87
[2021-02-02] MEDS: HEPARIN 5,000 UNIT VIAL SQ SCH (20:51)
[2021-02-03] VITALS (28 sets, daily range): BP systolic 114–179; BP diastolic 58–120
[2021-02-03] MEDS: HYDROMORPHONE 0.5 MG SYG (0.5MG/0.5ML) IVP PRN ×3 (00:46→19:56)
[2021-02-03 03:36] LABS: BASOPHILS % (AUTO) 0.9 % (0.0-5.0); EOSINOPHILS % (AUTO) 14.5 % (0.0-8.0); HEMATOCRIT 33.6 % (36-48); LYMPHOCYTES % (AUTO) 18.2 % (21.0-51.0); MEAN CORPUSCULAR HEMOGLOBIN 28.4 pg (27.0-33.0); MEAN CORPUSCULAR HGB CONC 31.5 g/dL (32.0-36.0); MEAN CORPUSCULAR VOLUME 90.1 fL (79-99); MONOCYTES % (AUTO) 14.5 % (3.0-13.0); NEUTROPHILS % (AUTO) 51.6 % (40.0-77.0); PLATELET COUNT (AUTO) 198 K/uL (130-400); RED BLOOD CELL COUNT(AUTO) 3.73 MIL/uL (4.00-5.50); RED CELL DISTRIBUTION WIDTH 19.3 % (11.0-15.5)
[2021-02-03 03:49] LABS: INR 1.13 (0.85-1.15); PROTHROMBIN TIME 12.2 SEC (9.6-11.6)
[2021-02-03 03:50] LABS: PARTIAL THROMBOPLASTIN TIME 23.9 SEC (26.3-35.5)
[2021-02-03 03:53] LABS: ALBUMIN 2.7 g/dL (3.5-5.0); BILIRUBIN,TOTAL 2.3 mg/dL (0.2-1.0); CREATININE 7.2 mg/dL (0.5-1.5); TOTAL PROTEIN, SERUM 8.2 g/dL (6.0-8.3)
[2021-02-03] MEDS: INSULIN HUMULIN R 100 UNIT/ML 3ML SQ SCH ×4 (05:57→19:55)
[2021-02-03] MEDS: HEPARIN 5,000 UNIT VIAL SQ SCH ×4 (09:00→19:55)
[2021-02-03] MEDS: FAMOTIDINE 20MG TAB PO SCH ×2 (09:36→19:52)
[2021-02-03] MEDS ORDERED: ALBUMIN (HUMAN) 25% 200 ML IV ONE ×2 (11:30)
[2021-02-03 11:54] LABS: APPEARANCE BODY FLUID CLEAR (CLEAR); COLOR,BODY FLUID YELLOW (LT YELLOW); SPECIMENTYPE,BODY FLUID ASCITES
[2021-02-03 11:55] LABS: BODY FLUID RBC 180 /cu. mm.; BODY FLUID WBC 100 /cu. mm.; TOTAL VOLUME,BODY FLUID 6200 mL
[2021-02-03 12:05] LABS: BF LYMPHOCYTE 3 %; BF MESOTHELIAL 97 %
[2021-02-04] MEDS: HYDROMORPHONE 0.5 MG SYG (0.5MG/0.5ML) IVP PRN ×2 (02:54→08:58)
[2021-02-04 04:00] VITALS: BP 119/72
[2021-02-04] MEDS: INSULIN HUMULIN R 100 UNIT/ML 3ML SQ SCH ×3 (06:04→15:36)
[2021-02-04 07:39] VITALS: BP 116/70
[2021-02-04 08:14] LABS: HEPATITIS Bs ANTIGEN SCREEN P Negative (Negative)
[2021-02-04] MEDS: HEPARIN 5,000 UNIT VIAL SQ SCH ×2 (08:52→14:02)
[2021-02-04] MEDS: FAMOTIDINE 20MG TAB PO SCH (08:52)
[2021-02-04 11:41] VITALS: BP 132/86
[2021-02-04 15:33] VITALS: BP 125/87
[2021-03-30] MEDS ORDERED: CALC667C10 PO (12:42)
[2021-03-30] MEDS ORDERED: TRAZ-187 PO (12:42)
[2021-03-30] MEDS ORDERED: MELA5TAB14 PO (12:42)
[2021-03-30] MEDS ORDERED: SULF1TAB42 PO (12:42)
[2021-03-30] MEDS ORDERED: LACT10SO9 PO (12:42)
[2021-03-30] MEDS ORDERED: FAMO20TA8 PO (12:42)
[2021-03-30] MEDS ORDERED: FOLI0.8T2 PO (12:42)
== END 2021-02-04 18:00 | disposition home or self-care (01) ==
LOC: EDH 00:46 → EDHIP 00:47 → 3BH 10:10
PROVIDERS: ADMIT Hospitalist; ATTEND Hospitalist
PROC: 5A1D70Z Performance of Urinary Filtration, Intermittent, Less than 6 Hours Per Day (ICD-10-PCS; principal; 2021-02-03)
PROC: 0W9G3ZZ Drainage of Peritoneal Cavity, Percutaneous Approach (ICD-10-PCS; 2021-02-03)
DX: R18.8 Other ascites (principal); I13.2 Hypertensive heart and chronic kidney disease with heart failure and with stage 5 chronic kidney disease, or end stage renal disease; K85.90 Acute pancreatitis without necrosis or infection, unspecified; E11.22 Type 2 diabetes mellitus with diabetic chronic kidney disease; E11.42 Type 2 diabetes mellitus with diabetic polyneuropathy; N18.6 End stage renal disease; E11.319 Type 2 diabetes mellitus with unspecified diabetic retinopathy without macular edema; K74.60 Unspecified cirrhosis of liver; E87.5 Hyperkalemia; E87.70 Fluid overload, unspecified; R79.89 Other specified abnormal findings of blood chemistry; E11.649 Type 2 diabetes mellitus with hypoglycemia without coma; F41.9 Anxiety disorder, unspecified; Z20.822 Contact with and (suspected) exposure to COVID-19; K82.9 Disease of gallbladder, unspecified; K76.9 Liver disease, unspecified; E11.51 Type 2 diabetes mellitus with diabetic peripheral angiopathy without gangrene; I50.9 Heart failure, unspecified; Z99.2 Dependence on renal dialysis; Z79.4 Long term (current) use of insulin; Z87.19 Personal history of other diseases of the digestive system; Z91.018 Allergy to other foods; Z91.19 Patient's noncompliance with other medical treatment and regimen; Z83.3 Family history of diabetes mellitus; Z82.49 Family history of ischemic heart disease and other diseases of the circulatory system
CPT/HCPCS: 36415; 49083; 76700; 80053; 82042; 82140; 82248; 82948; 83036; 83690; 83735; 84100; 84132; 84157; 85025; 85610; 85730; 86704; 86706; 87071; 87205; 87340; 87635; 89051; 90935; 93005; 97039; C1729; C9803; G0378; J1170; J1644; J1815; J7070; P9046

== ENCOUNTER 2021-03-06 21:07 | Inpatient (IN) | payer MEDICAID ==
[~2021-03-06] VITALS: Ht 157.5 cm; Wt 71.2 kg
[2021-03-06] MEDS ORDERED: HYDROCODONE/ACETAMINOPHEN 5/325 MG TAB PO ONE (21:30)
[2021-03-06] MEDS ORDERED: HYDROCODONE/ACETAMINOPHEN 5/325 MG TAB ONE (22:32)
[2021-03-06 22:40] LABS: BASOPHILS % (AUTO) 0.5 % (0.0-5.0); EOSINOPHILS % (AUTO) 5.4 % (0.0-8.0); HEMATOCRIT 38.3 % (36-48); LYMPHOCYTES % (AUTO) 24.3 % (21.0-51.0); MEAN CORPUSCULAR HEMOGLOBIN 29.3 pg (27.0-33.0); MEAN CORPUSCULAR HGB CONC 31.6 g/dL (32.0-36.0); MEAN CORPUSCULAR VOLUME 92.7 fL (79-99); MONOCYTES % (AUTO) 10.4 % (3.0-13.0); NEUTROPHILS % (AUTO) 59.2 % (40.0-77.0); PLATELET COUNT (AUTO) 160 K/uL (130-400); RED BLOOD CELL COUNT(AUTO) 4.13 MIL/uL (4.00-5.50); RED CELL DISTRIBUTION WIDTH 17.4 % (11.0-15.5); WHITE BLOOD COUNT (AUTO) 5.6 K/uL (4.8-10.8)
[2021-03-06 22:48] LABS: CREATININE 7.1 mg/dL (0.5-1.5); POTASSIUM 5.4 mmol/L (3.5-5.1)
[2021-03-06 22:57] LABS: ALBUMIN 3.4 g/dL (3.5-5.0); BILIRUBIN,TOTAL 1.3 mg/dL (0.2-1.0); MAGNESIUM 2.8 mg/dL (1.80-2.40); TOTAL PROTEIN, SERUM 8.9 g/dL (6.0-8.3)
[2021-03-07] VITALS (21 sets, daily range): BP systolic 103–136; BP diastolic 62–96
[2021-03-07] MEDS ORDERED: INSULIN HUMULIN R 100 UNIT/ML 3ML IV ONE (02:00)
[2021-03-07] MEDS ORDERED: ONDANSETRON 4MG INJ IV PRN (02:00)
[2021-03-07] MEDS ORDERED: LACTATED RINGERS 1000ML 1,000 ML IV SCH (02:00)
[2021-03-07] MEDS ORDERED: MORPHINE 2 MG SYG IV PRN (02:00)
[2021-03-07] MEDS ORDERED: HYDRALAZINE 20MG/ML VIAL IV PRN (02:00)
[2021-03-07] MEDS: MORPHINE 4 MG SYG IV PRN ×3 (03:56→23:26)
[2021-03-07 04:55] LABS: BASOPHILS % (AUTO) 0.4 % (0.0-5.0); EOSINOPHILS % (AUTO) 4.3 % (0.0-8.0); HEMATOCRIT 36.9 % (36-48); LYMPHOCYTES % (AUTO) 36.6 % (21.0-51.0); MEAN CORPUSCULAR HEMOGLOBIN 28.9 pg (27.0-33.0); MEAN CORPUSCULAR HGB CONC 31.4 g/dL (32.0-36.0); MEAN CORPUSCULAR VOLUME 91.8 fL (79-99); NEUTROPHILS % (AUTO) 47.6 % (40.0-77.0); PLATELET COUNT (AUTO) 173 K/uL (130-400); RED BLOOD CELL COUNT(AUTO) 4.02 MIL/uL (4.00-5.50); RED CELL DISTRIBUTION WIDTH 17.2 % (11.0-15.5); WHITE BLOOD COUNT (AUTO) 6.8 K/uL (4.8-10.8)
[2021-03-07 05:03] LABS: INR 1.06 (0.85-1.15); PROTHROMBIN TIME 11.5 SEC (9.6-11.6)
[2021-03-07 05:05] LABS: PARTIAL THROMBOPLASTIN TIME 25.2 SEC (26.3-35.5)
[2021-03-07 05:09] LABS: CREATININE 7.1 mg/dL (0.5-1.5); MAGNESIUM 2.5 mg/dL (1.80-2.40); PHOSPHORUS 8.4 mg/dL (2.5-4.9); POTASSIUM 4.5 mmol/L (3.5-5.1)
[2021-03-07 05:12] LABS: HEMOGLOBIN A1C 8.7 % (4.0-6.0)
[2021-03-07] MEDS ORDERED: DEXTROSE 50%-WATER 50 ML DISP.SYRIN IV ONE (05:16)
[2021-03-07] MEDS ORDERED: FAMOTIDINE 20MG VIAL IV SCH (09:00)
[2021-03-07] MEDS: DEXTROSE 5%-WATER 1,000 ML IV SCH (09:30)
[2021-03-07] MEDS: SEVELAMER HCL 800 MG TABLET PO SCH ×2 (12:35→17:00)
[2021-03-07] MEDS ORDERED: 0.9%NACL 1000ML 2,000 ML IV ONE (14:06)
[2021-03-07] MEDS ORDERED: HEPARIN 5,000 UNIT VIAL IV STA (17:59)
[2021-03-07] MEDS ORDERED: HEPARIN 5,000 UNIT VIAL ONE (18:08)
[2021-03-08 03:35] VITALS: BP 97/65
[2021-03-08 04:15] LABS: BASOPHILS % (AUTO) 0.8 % (0.0-5.0); EOSINOPHILS % (AUTO) 6.6 % (0.0-8.0); HEMATOCRIT 37.4 % (36-48); LYMPHOCYTES % (AUTO) 32.7 % (21.0-51.0); MEAN CORPUSCULAR HGB CONC 30.7 g/dL (32.0-36.0); MEAN CORPUSCULAR VOLUME 94.2 fL (79-99); MONOCYTES % (AUTO) 11.2 % (3.0-13.0); NEUTROPHILS % (AUTO) 48.5 % (40.0-77.0); PLATELET COUNT (AUTO) 125 K/uL (130-400); RED BLOOD CELL COUNT(AUTO) 3.97 MIL/uL (4.00-5.50); RED CELL DISTRIBUTION WIDTH 17.2 % (11.0-15.5)
[2021-03-08 04:32] LABS: CREATININE 5.9 mg/dL (0.5-1.5); PHOSPHORUS 7.9 mg/dL (2.5-4.9); POTASSIUM 4.8 mmol/L (3.5-5.1)
[2021-03-08] MEDS: DEXTROSE 5%-WATER 1,000 ML IV SCH (05:30)
[2021-03-08 07:47] VITALS: BP 130/92
[2021-03-08] MEDS: SEVELAMER HCL 800 MG TABLET PO SCH ×3 (08:40→16:21)
[2021-03-08] MEDS: FAMOTIDINE 20MG TAB PO SCH (08:40)
[2021-03-08] MEDS: MORPHINE 4 MG SYG IV PRN (08:47)
[2021-03-08] MEDS: INSULIN HUMULIN R 100 UNIT/ML 3ML SQ SCH ×3 (11:11→21:00)
[2021-03-08 11:43] VITALS: BP 108/73
[2021-03-08 13:09] LABS: HEPATITIS Bs ANTIGEN SCREEN P Negative (Negative)
[2021-03-08 16:00] VITALS: BP 128/68
[2021-03-08] MEDS ORDERED: MORPHINE 2 MG SYG ONE (16:48)
[2021-03-08] MEDS ORDERED: MORPHINE 2 MG SYG IVP PRN ×2 (17:00)
[2021-03-08 19:22] VITALS: BP 120/68
[2021-03-08] MEDS ORDERED: MORPHINE 2 MG SYG IVP ONE (23:00)
[2021-03-08 23:47] VITALS: BP 103/73
[2021-03-09 03:35] VITALS: BP 102/63
[2021-03-09] MEDS: INSULIN HUMULIN R 100 UNIT/ML 3ML SQ SCH ×4 (05:32→21:00)
[2021-03-09 07:08] LABS: ALBUMIN 3.3 g/dL (3.5-5.0); BILIRUBIN,DIRECT 0.8 mg/dL (0.0-0.3); BILIRUBIN,TOTAL 1.1 mg/dL (0.2-1.0); CREATININE 7.8 mg/dL (0.5-1.5); POTASSIUM 5.6 mmol/L (3.5-5.1); TOTAL PROTEIN, SERUM 8.5 g/dL (6.0-8.3)
[2021-03-09] MEDS ORDERED: NA ZIRCON CYCLOSIL(LOKELMA 10GM) PO SCH (08:30)
[2021-03-09 08:50] VITALS: BP 127/86
[2021-03-09] MEDS: SEVELAMER HCL 800 MG TABLET PO SCH ×3 (12:00→17:00)
[2021-03-09] MEDS ORDERED: ALBUMIN (HUMAN) 25% 200 ML IV SCH (12:00)
[2021-03-09 12:37] VITALS: BP 116/66
[2021-03-09 12:54] LABS: ALBUMIN,BODY FLUID 2.4 g/dL
[2021-03-09 13:01] LABS: APPEARANCE BODY FLUID CLEAR (CLEAR); BODY FLUID WBC 190 /cu. mm.; COLOR,BODY FLUID YELLOW (LT YELLOW); SPECIMENTYPE,BODY FLUID ASCITES; TOTAL VOLUME,BODY FLUID 6400 mL
[2021-03-09 13:02] LABS: BODY FLUID RBC 173 /cu. mm.
[2021-03-09 13:39] LABS: BF LYMPHOCYTE 6 %; BF MESOTHELIAL 92 %; BF MONOCYTE 2 %
[2021-03-09] MEDS: FAMOTIDINE 20MG TAB PO SCH (15:12)
[2021-03-09] MEDS: CARVEDILOL 3.125 MG TABLET PO SCH ×2 (15:13→22:05)
[2021-03-09 16:52] VITALS: BP 138/92
[2021-03-09 19:47] VITALS: BP 113/80
[2021-03-10] VITALS (23 sets, daily range): BP systolic 110–137; BP diastolic 43–94
[2021-03-10] MEDS: INSULIN HUMULIN R 100 UNIT/ML 3ML SQ SCH ×3 (06:52→21:00)
[2021-03-10 07:30] LABS: BASOPHILS % (AUTO) 0.5 % (0.0-5.0); EOSINOPHILS % (AUTO) 3.7 % (0.0-8.0); HEMATOCRIT 37.8 % (36-48); MEAN CORPUSCULAR HEMOGLOBIN 28.9 pg (27.0-33.0); MEAN CORPUSCULAR VOLUME 90.4 fL (79-99); MONOCYTES % (AUTO) 11.3 % (3.0-13.0); NEUTROPHILS % (AUTO) 60.2 % (40.0-77.0); PLATELET COUNT (AUTO) 161 K/uL (130-400); RED BLOOD CELL COUNT(AUTO) 4.18 MIL/uL (4.00-5.50); RED CELL DISTRIBUTION WIDTH 16.7 % (11.0-15.5); WHITE BLOOD COUNT (AUTO) 6.5 K/uL (4.8-10.8)
[2021-03-10] MEDS: SEVELAMER HCL 800 MG TABLET PO SCH ×3 (08:00→17:00)
[2021-03-10 08:04] LABS: CREATININE 9.2 mg/dL (0.5-1.5); POTASSIUM 6.4 mmol/L (3.5-5.1)
[2021-03-10] MEDS: CARVEDILOL 3.125 MG TABLET PO SCH ×2 (09:00→15:52)
[2021-03-10] MEDS: FAMOTIDINE 20MG TAB PO SCH ×2 (09:00→15:52)
[2021-03-10] MEDS ORDERED: HEPARIN 5,000 UNIT VIAL ONE (12:08)
[2021-03-10] MEDS ORDERED: LIDOCAINE HCL 1% MDV 50ML VIAL ONE (13:19)
[2021-03-10] MEDS ORDERED: HEPARIN 10,000 UNIT/10ML (1,000 UNIT/ML) VIAL ONE (13:19)
[2021-03-10] MEDS ORDERED: IODIXANOL 320 MG/ML 100 ML VIAL ONE (13:19)
[2021-03-11] VITALS (23 sets, daily range): BP systolic 97–152; BP diastolic 56–90
[2021-03-11 04:07] LABS: HEMATOCRIT 36.5 % (36-48); MEAN CORPUSCULAR HGB CONC 32.6 g/dL (32.0-36.0); RED BLOOD CELL COUNT(AUTO) 4.1 MIL/uL (4.00-5.50); RED CELL DISTRIBUTION WIDTH 16.5 % (11.0-15.5); WHITE BLOOD COUNT (AUTO) 5.5 K/uL (4.8-10.8)
[2021-03-11 04:20] LABS: CREATININE 7.1 mg/dL (0.5-1.5); POTASSIUM 4.9 mmol/L (3.5-5.1)
[2021-03-11 04:21] LABS: INR 1.12 (0.85-1.15); PROTHROMBIN TIME 12.1 SEC (9.6-11.6)
[2021-03-11] MEDS: INSULIN HUMULIN R 100 UNIT/ML 3ML SQ SCH ×4 (06:07→21:00)
[2021-03-11] MEDS: SEVELAMER HCL 800 MG TABLET PO SCH ×3 (08:00→17:10)
[2021-03-11] MEDS: CARVEDILOL 3.125 MG TABLET PO SCH ×2 (09:00→21:12)
[2021-03-11] MEDS ORDERED: CEFAZOLIN SODIUM 1 GM VIAL ONE (10:26)
[2021-03-11] MEDS ORDERED: CEFAZOLIN SODIUM 1 GM VIAL IVP PRN (10:30)
[2021-03-11] MEDS ORDERED: MIDAZOLAM HCL 1 MG/ML 2ML VIAL ONE (11:54)
[2021-03-11] MEDS ORDERED: LIDOCAINE PF 100MG/5ML (2%) SYRINGE 5ML ONE (11:54)
[2021-03-11] MEDS ORDERED: PROPOFOL 10 MG/ML 20ML VIAL IV ONE (11:54)
[2021-03-11] MEDS ORDERED: ROCURONIUM 10MG/1ML SYR 10 MG/ML ML ONE (11:55)
[2021-03-11] MEDS ORDERED: FENTANYL CITRATE PF 50 MCG/1 ML 2ML VIAL ONE (11:55)
[2021-03-11] MEDS ORDERED: EPHEDRINE SULFATE 50 MG/ML AMPULE ONE (12:10)
[2021-03-11] MEDS ORDERED: CEFAZOLIN SODIUM 1 GM VIAL IVP ONE (12:20)
[2021-03-11] MEDS ORDERED: TRAMADOL HCL 50 MG TABLET PO PRN (13:00)
[2021-03-11] MEDS ORDERED: ACETAMINOPHEN 325 MG TAB PO PRN (13:00)
[2021-03-11] MEDS ORDERED: PROTAMINE SULFATE 10 MG/ML 25ML VIAL IV ONE (13:30)
[2021-03-11] MEDS ORDERED: NEOSTIGMINE 5MG/5ML SYR IV ONE (13:54)
[2021-03-11] MEDS ORDERED: GLYCOPYRROLATE 1 MG/5 ML SYRINGE ONE (13:54)
[2021-03-11] MEDS: CEFAZOLIN SODIUM 1 GM VIAL IVP SCH (21:12)
[2021-03-11] MEDS: TRAMADOL HCL 50 MG TABLET PO PRN (21:13)
[2021-03-12] VITALS (22 sets, daily range): BP systolic 92–152; BP diastolic 58–95
[2021-03-12] MEDS: CEFAZOLIN SODIUM 1 GM VIAL IVP SCH ×2 (03:21→16:28)
[2021-03-12] MEDS: TRAMADOL HCL 50 MG TABLET PO PRN ×2 (05:35→19:51)
[2021-03-12] MEDS: INSULIN HUMULIN R 100 UNIT/ML 3ML SQ SCH ×4 (05:39→19:52)
[2021-03-12] MEDS: SEVELAMER HCL 800 MG TABLET PO SCH ×3 (08:31→17:13)
[2021-03-12] MEDS: FAMOTIDINE 20MG TAB PO SCH (08:31)
[2021-03-12] MEDS: CARVEDILOL 3.125 MG TABLET PO SCH ×2 (08:32→19:52)
[2021-03-12 09:05] LABS: HEMATOCRIT 38.1 % (36-48); MEAN CORPUSCULAR HEMOGLOBIN 28.9 pg (27.0-33.0); MEAN CORPUSCULAR VOLUME 90.3 fL (79-99); PLATELET COUNT (AUTO) 162 K/uL (130-400); RED BLOOD CELL COUNT(AUTO) 4.22 MIL/uL (4.00-5.50); WHITE BLOOD COUNT (AUTO) 6.2 K/uL (4.8-10.8)
[2021-03-12 09:14] LABS: POTASSIUM 5.9 mmol/L (3.5-5.1)
[2021-03-12 09:16] LABS: CREATININE 9.1 mg/dL (0.5-1.5)
[2021-03-12 09:42] LABS: BASOPHILS % (MANUAL) 1 % (0-2); EOSINOPHILS % (MANUAL) 5 % (1-6); LYMPHOCYTES % (MANUAL) 15 % (22-44); MAN.DIFF COMMENT-IMPRESSION MANUAL DIFFERENTIAL; MONOCYTES % (MANUAL) 13 % (2-9); PLATELET MORPHOLOGY COMMENT ADEQUATE; SEGMENTED NEUTROPHILS % 66 % (40-70)
[2021-03-12] MEDS ORDERED: HEPARIN 5,000 UNIT VIAL ONE (11:44)
[2021-03-12] MEDS ORDERED: CEFAZOLIN SODIUM 1 GM VIAL ONE (16:18)
[2021-03-13 04:00] VITALS: BP 97/64
[2021-03-13 05:27] LABS: HEMATOCRIT 39.1 % (36-48); MEAN CORPUSCULAR HEMOGLOBIN 29.4 pg (27.0-33.0); MEAN CORPUSCULAR HGB CONC 31.7 g/dL (32.0-36.0); MEAN CORPUSCULAR VOLUME 92.7 fL (79-99); RED BLOOD CELL COUNT(AUTO) 4.22 MIL/uL (4.00-5.50); RED CELL DISTRIBUTION WIDTH 16.9 % (11.0-15.5); WHITE BLOOD COUNT (AUTO) 6.3 K/uL (4.8-10.8)
[2021-03-13 05:43] LABS: CREATININE 6.7 mg/dL (0.5-1.5); POTASSIUM 4.7 mmol/L (3.5-5.1)
[2021-03-13] MEDS: INSULIN HUMULIN R 100 UNIT/ML 3ML SQ SCH ×4 (06:10→21:00)
[2021-03-13] MEDS: AURYXIA PO SCH ×3 (08:00→16:27)
[2021-03-13 08:12] VITALS: BP 122/74
[2021-03-13] MEDS ORDERED: TRAM50TA4 PO (08:56)
[2021-03-13] MEDS: DOCUSATE SODIUM 100 MG CAP PO SCH ×2 (09:15→21:34)
[2021-03-13] MEDS: Vitamin B Complex/Vit C/Folic Acid PO SCH (09:15)
[2021-03-13] MEDS: FAMOTIDINE 20MG TAB PO SCH (09:15)
[2021-03-13] MEDS: ASPIRIN 81 MG EC TAB PO SCH (09:15)
[2021-03-13] MEDS: SEVELAMER HCL 800 MG TABLET PO SCH ×3 (09:16→17:41)
[2021-03-13] MEDS: CARVEDILOL 3.125 MG TABLET PO SCH ×2 (09:16→21:34)
[2021-03-13 12:00] VITALS: BP 109/72
[2021-03-13 16:00] VITALS: BP 165/64
[2021-03-13 19:40] VITALS: BP 99/61
[2021-03-13] MEDS ORDERED: ARIPIPRAZOLE 5 MG TABLET PO SCH (21:00)
[2021-03-14] VITALS (20 sets, daily range): BP systolic 92–132; BP diastolic 50–86
[2021-03-14] MEDS: INSULIN HUMULIN R 100 UNIT/ML 3ML SQ SCH ×3 (05:28→16:30)
[2021-03-14] MEDS: AURYXIA PO SCH ×3 (08:00→16:31)
[2021-03-14] MEDS: SEVELAMER HCL 800 MG TABLET PO SCH ×3 (08:19→16:42)
[2021-03-14] MEDS: CARVEDILOL 3.125 MG TABLET PO SCH (08:19)
[2021-03-14] MEDS: DOCUSATE SODIUM 100 MG CAP PO SCH (08:19)
[2021-03-14] MEDS: ASPIRIN 81 MG EC TAB PO SCH (08:19)
[2021-03-14] MEDS: FAMOTIDINE 20MG TAB PO SCH (08:19)
[2021-03-14] MEDS: Vitamin B Complex/Vit C/Folic Acid PO SCH (08:19)
[2021-03-14 09:45] LABS: POTASSIUM 5.4 mmol/L (3.5-5.1)
[2021-03-14 09:52] LABS: CREATININE 8.4 mg/dL (0.5-1.5)
[2021-03-14] MEDS ORDERED: HEPARIN 5,000 UNIT VIAL IJ PRN (17:30)
== END 2021-03-14 19:40 | DRG 444 ==
LOC: EDH 21:07 → EDHIP 21:08 → 4CH 03-07 02:24
PROVIDERS: ADMIT Internal Medicine; ATTEND Internal Medicine
PROC: 5A1D70Z Performance of Urinary Filtration, Intermittent, Less than 6 Hours Per Day (ICD-10-PCS; 2021-03-07)
PROC: 0W9G3ZZ Drainage of Peritoneal Cavity, Percutaneous Approach (ICD-10-PCS; 2021-03-09)
PROC: 5A1D70Z Performance of Urinary Filtration, Intermittent, Less than 6 Hours Per Day (ICD-10-PCS; 2021-03-10)
PROC: 03170KD Bypass Right Brachial Artery to Upper Arm Vein with Nonautologous Tissue Substitute, Open Approach (ICD-10-PCS; principal; 2021-03-11 11:55)
PROC: 5A1D70Z Performance of Urinary Filtration, Intermittent, Less than 6 Hours Per Day (ICD-10-PCS; 2021-03-12)
PROC: 5A1D70Z Performance of Urinary Filtration, Intermittent, Less than 6 Hours Per Day (ICD-10-PCS; 2021-03-14)
DX: T82.898A Other specified complication of vascular prosthetic devices, implants and grafts, initial encounter (principal); R18.8 Other ascites; I13.2 Hypertensive heart and chronic kidney disease with heart failure and with stage 5 chronic kidney disease, or end stage renal disease; I50.41 Acute combined systolic (congestive) and diastolic (congestive) heart failure; E11.22 Type 2 diabetes mellitus with diabetic chronic kidney disease; N18.6 End stage renal disease; E87.1 Hypo-osmolality and hyponatremia; K74.60 Unspecified cirrhosis of liver; E87.5 Hyperkalemia; G45.8 Other transient cerebral ischemic attacks and related syndromes; I07.1 Rheumatic tricuspid insufficiency; Z20.822 Contact with and (suspected) exposure to COVID-19; Y83.8 Other surgical procedures as the cause of abnormal reaction of the patient, or of later complication, without mention of misadventure at the time of the procedure; D64.9 Anemia, unspecified; Y92.89 Other specified places as the place of occurrence of the external cause; Z99.2 Dependence on renal dialysis; Z91.018 Allergy to other foods; Z79.4 Long term (current) use of insulin; Z79.82 Long term (current) use of aspirin; Z59.00 Homelessness unspecified; Z83.3 Family history of diabetes mellitus; Z82.49 Family history of ischemic heart disease and other diseases of the circulatory system
CPT/HCPCS: 36415; 36901; 49083; 76705; 80048; 80053; 80076; 82042; 82550; 82948; 83036; 83605; 83615; 83735; 84100; 84157; 84703; 85025; 85027; 85610; 85730; 86704; 86706; 86850; 86900; 86901; 86923; 87071; 87205; 87340; 87635; 89051; 90935; 93005; 93306; 93356; 93931; 97039; C1729; C1769; C1894; G0378; J0690; J1644; J1815; J2001; J2250; J2270; J2704; J2710; J2720; J3010; J3490; J7030; J7070; P9046; Q9967

== ENCOUNTER 2021-08-04 11:55 | Emergency (ER) | payer MEDICAID ==
[~2021-08-04 11:55] MED LIST changes: -ASCO500T10 PO; -AURYXIA PO; +CALC667C10 PO; +FAMO20TA8 PO; -FAMO40TA75 PO; +FOLI0.8T2 PO; -FOLI1TAB85 PO; -INSU100V12 SQ; +LACT10SO9 PO; +MELA5TAB14 PO; -SEVE800T27 PO; +TRAM50TA4 PO; +TRAZ-187 PO; -ZINC220C6 PO
[2021-08-04] MEDS ORDERED: CYCLOBENZAPRINE HCL 10 MG TABLET PO SCH (12:30)
[2021-08-04] MEDS ORDERED: TRAMADOL /APAP 37.5MG/325MG TAB PO SCH (12:30)
[2021-08-04] MEDS ORDERED: ACET-2247 PO (13:12)
[2021-08-04] MEDS ORDERED: CYCL10TA16 PO (13:12)
[2021-08-04 13:17] VITALS: BP 174/107
== END 2021-08-04 13:32 | disposition home or self-care (01) ==
LOC: EDH 11:55
DX: S16.1XXA Strain of muscle, fascia and tendon at neck level, initial encounter (principal); S39.012A Strain of muscle, fascia and tendon of lower back, initial encounter; S09.90XA Unspecified injury of head, initial encounter; I12.0 Hypertensive chronic kidney disease with stage 5 chronic kidney disease or end stage renal disease; E11.22 Type 2 diabetes mellitus with diabetic chronic kidney disease; N18.6 End stage renal disease; Z99.2 Dependence on renal dialysis; E21.3 Hyperparathyroidism, unspecified; Z79.899 Other long term (current) drug therapy; Z79.82 Long term (current) use of aspirin; Z79.4 Long term (current) use of insulin; Z98.890 Other specified postprocedural states; W01.0XXA Fall on same level from slipping, tripping and stumbling without subsequent striking against object, initial encounter; Y93.01 Activity, walking, marching and hiking; Y92.89 Other specified places as the place of occurrence of the external cause; Y99.8 Other external cause status
CPT/HCPCS: 70450; 72125; 72131

== ENCOUNTER 2021-08-04 22:36 | Observation (INO) | payer MEDICAID ==
[~2021-08-04] VITALS: Ht 157.5 cm; Wt 89.3 kg
[~2021-08-04 22:36] MED LIST changes: +CYCL10TA16 PO
[2021-08-04] MEDS ORDERED: ACETAMINOPHEN 500 MG TABLET PO ONE (23:00)
[2021-08-04 23:11] LABS: BASOPHILS % (AUTO) 0.5 % (0.0-5.0); EOSINOPHILS % (AUTO) 7.2 % (0.0-8.0); HEMATOCRIT 33.4 % (36-48); LYMPHOCYTES % (AUTO) 15.1 % (21.0-51.0); MEAN CORPUSCULAR HGB CONC 30.8 g/dL (32.0-36.0); MEAN CORPUSCULAR VOLUME 90.8 fL (79-99); MONOCYTES % (AUTO) 10.5 % (3.0-13.0); NEUTROPHILS % (AUTO) 66.5 % (40.0-77.0); PLATELET COUNT (AUTO) 198 K/uL (130-400); RED BLOOD CELL COUNT(AUTO) 3.68 MIL/uL (4.00-5.50); RED CELL DISTRIBUTION WIDTH 20.5 % (11.0-15.5); WHITE BLOOD COUNT (AUTO) 8.2 K/uL (4.8-10.8)
[2021-08-04 23:32] LABS: ALBUMIN 3.3 g/dL (3.5-5.0); BILIRUBIN,TOTAL 0.8 mg/dL (0.2-1.0); TOTAL PROTEIN, SERUM 8.6 g/dL (6.0-8.3)
[2021-08-04 23:34] LABS: POTASSIUM 8.3 mmol/L (3.5-5.1)
[2021-08-04 23:35] LABS: CREATININE 11.1 mg/dL (0.5-1.5)
[2021-08-04] MEDS ORDERED: CALCIUM GLUC 1GM/10ML VIAL ONE (23:53)
[2021-08-04] MEDS: KAYEXALATE 15GM/60ML PO SCH (23:56)
[2021-08-05] VITALS (17 sets, daily range): BP systolic 128–173; BP diastolic 70–111
[2021-08-05] MEDS ORDERED: HYDRALAZINE 20MG/ML VIAL IV PRN
[2021-08-05] MEDS ORDERED: NA ZIRCON CYCLOSIL(LOKELMA 10GM) PO ONE
[2021-08-05] MEDS ORDERED: LACTULOSE 20 GM/30 ML UDCUP PO PRN
[2021-08-05] MEDS ORDERED: HYDROMORPHONE 0.5 MG SYG (0.5MG/0.5ML) IVP ONE
[2021-08-05] MEDS ORDERED: ALBUTEROL 0.083% 2.5 MG/3 ML INH IH PRN
[2021-08-05] MEDS ORDERED: DEXTROSE 50%-WATER 25 GM/50 ML VIAL IV ONE
[2021-08-05] MEDS ORDERED: HYDROMORPHONE 1 MG INJ IVP PRN
[2021-08-05] MEDS ORDERED: ACETAMINOPHEN 325 MG TAB PO PRN
[2021-08-05] MEDS ORDERED: DOCUSATE SODIUM 100 MG CAP PO PRN
[2021-08-05] MEDS ORDERED: INSULIN HUMULIN R 100 UNIT/ML 3ML IV ONE
[2021-08-05] MEDS ORDERED: CALCIUM GLUC 1GM 1 GM in 0.9%NACL 100ML 100 ML IV ONE ×2
[2021-08-05] MEDS ORDERED: ONDANSETRON 4MG INJ IVP PRN
[2021-08-05] MEDS: HEPARIN 5,000 UNIT VIAL SQ SCH ×2 (00:38→11:48)
[2021-08-05] MEDS: KAYEXALATE 15GM/60ML PO SCH (02:24)
[2021-08-05 04:12] LABS: HEMATOCRIT 32.1 % (36-48); MEAN CORPUSCULAR HEMOGLOBIN 29.2 pg (27.0-33.0); MEAN CORPUSCULAR HGB CONC 32.7 g/dL (32.0-36.0); MEAN CORPUSCULAR VOLUME 89.4 fL (79-99); RED BLOOD CELL COUNT(AUTO) 3.59 MIL/uL (4.00-5.50); RED CELL DISTRIBUTION WIDTH 20.3 % (11.0-15.5); WHITE BLOOD COUNT (AUTO) 6.4 K/uL (4.8-10.8)
[2021-08-05 04:29] LABS: CREATININE 6.9 mg/dL (0.5-1.5); MAGNESIUM 2.6 mg/dL (1.80-2.40); PHOSPHORUS 7.3 mg/dL (2.5-4.9); POTASSIUM 4.9 mmol/L (3.5-5.1)
[2021-08-05] MEDS: INSULIN LISPRO 100 UNIT/ML 3ML SQ SCH ×3 (06:39→16:30)
[2021-08-05] MEDS ORDERED: PANTOPRAZOLE 40 MG/VIAL IVP SCH (09:00)
[2021-08-05] MEDS ORDERED: CLONIDINE HCL 0.1 MG TABLET PO ONE (18:00)
[2021-08-15] MEDS ORDERED: ACET-2079 PO (09:16)
== END 2021-08-05 19:35 | disposition home or self-care (01) ==
LOC: EDH 22:36 → EDHIP 22:37 → 2DH 08-05 01:00
PROVIDERS: ADMIT Internal Medicine Critical Care Medicine; ATTEND Internal Medicine Critical Care Medicine
DX: A41.9 Sepsis, unspecified organism (principal); R62.7 Adult failure to thrive; E87.5 Hyperkalemia; I13.2 Hypertensive heart and chronic kidney disease with heart failure and with stage 5 chronic kidney disease, or end stage renal disease; I50.42 Chronic combined systolic (congestive) and diastolic (congestive) heart failure; N18.6 End stage renal disease; E11.65 Type 2 diabetes mellitus with hyperglycemia; E11.22 Type 2 diabetes mellitus with diabetic chronic kidney disease; D63.1 Anemia in chronic kidney disease; E78.5 Hyperlipidemia, unspecified; F39 Unspecified mood [affective] disorder; I07.1 Rheumatic tricuspid insufficiency; K74.60 Unspecified cirrhosis of liver; Z79.82 Long term (current) use of aspirin; Z79.899 Other long term (current) drug therapy; Z91.19 Patient's noncompliance with other medical treatment and regimen; Z99.2 Dependence on renal dialysis; Z98.890 Other specified postprocedural states; Z79.4 Long term (current) use of insulin; W18.30XA Fall on same level, unspecified, initial encounter; Y92.89 Other specified places as the place of occurrence of the external cause; Y93.89 Activity, other specified; Y99.8 Other external cause status
CPT/HCPCS: 36415 ×2; 70450 ×2; 71045; 72125 ×2; 72131; 80048; 80053; 82948 ×3; 83735; 84100; 84484; 85025; 85027; 93005 ×2; 96365; 96375 ×2; 96376; 97039; 97161; 99291; G0378 ×18; J0610 ×2; J1170 ×2; J1644 ×2; J1815; J7070; S0164; 90935; C9113

== ENCOUNTER 2021-08-14 20:43 | Emergency (ER) | payer MEDICAID ==
[~2021-08-14] VITALS: Ht 160 cm; Wt 86.6 kg
[~2021-08-14 20:43] MED LIST changes: -TRAM50TA4 PO
[2021-08-14] MEDS ORDERED: HYDROCODONE/ACETAMINOPHEN 10/325 MG TAB ONE (21:44)
[2021-08-14] MEDS ORDERED: HYDROCODONE/ACETAMINOPHEN 10/325 MG TAB PO ONE (22:00)
[2021-08-14 23:15] VITALS: BP 117/60
[2021-08-15] MEDS ORDERED: ACET-2079 PO (09:16)
== END 2021-08-14 23:33 | disposition home or self-care (01) ==
LOC: EDH 20:43
DX: S40.021A Contusion of right upper arm, initial encounter (principal); I12.0 Hypertensive chronic kidney disease with stage 5 chronic kidney disease or end stage renal disease; E11.22 Type 2 diabetes mellitus with diabetic chronic kidney disease; N18.6 End stage renal disease; Z99.2 Dependence on renal dialysis; Z79.82 Long term (current) use of aspirin; W22.03XA Walked into furniture, initial encounter; X58.XXXA Exposure to other specified factors, initial encounter; Y93.89 Activity, other specified; Y92.89 Other specified places as the place of occurrence of the external cause; Y99.8 Other external cause status
CPT/HCPCS: 73060; 73090